=== PATIENT | female | born 1965 | race Caucasian/White ===

== ENCOUNTER 2019-09-22 00:18 | Outpatient (CLI) | payer OTHER, SELFPAY ==
--- NOTE | 2019-09-22 | DI.DEXA_ITS ---
EXAM: XR DEXA BONE DENSITY W/WO RADHA CLINICAL HISTORY: SCREENING FOR OSTEOPOROSIS IN POSTMENOPAUSAL WOMAN, Z78.0 TECHNIQUE: DEXA scan was performed according to the usual protocol. COMPARISON: No exams were available for comparison FINDINGS: Findings for lumbar spine scanning are T-score of -1.7. Findings for left hip scanning are T-score of -0.6 with left femoral neck T-score of -0.1. Right forearm scanning shows T-score of 0.3. IMPRESSION: Findings consistent with osteopenia according to the WHO criteria. Please note that the lateral verte bral scanogram shows no evidence of a vertebral compression fracture.
== END 2019-09-22 00:38 ==
PROVIDERS: PCP Family Medicine; Visit Provider Family Medicine
DX: M85.88 Other specified disorders of bone density and structure, other site (principal); Z78.0 Asymptomatic menopausal state
CPT/HCPCS: 77080

== ENCOUNTER 2019-10-21 01:08 | Outpatient (CLI) | payer OTHER, SELFPAY ==
--- NOTE | 2019-10-21 | DI.MAMMO_ITS ---
EXAM: MAMMO SCREENING CLINICAL HISTORY: SCREENING, Z12.31 TECHNIQUE: Mammograms were interpreted according to the usual protocol including computer analysis w [employer] CAD system, tomosynthesis and C-view imaging. COMPARISON: 2017 FINDINGS: The breasts are composed of scattered fibroglandular densities, Breast Density category B. No suspicious masses or suspicious microcalcifications are seen. No skin thickening or abnormal axillary lymph nodes are seen. There has been no significant change from prior exams. IMPRESSION: BI-RADS category 1, yearly screening mammography is recommended. Breast density category B, scattered fibroglandular densities.
== END 2019-10-21 01:28 ==
PROVIDERS: PCP Family Medicine; Visit Provider Family Medicine
DX: Z12.31 Encounter for screening mammogram for malignant neoplasm of breast (principal)
CPT/HCPCS: 77063; 77067

== ENCOUNTER 2019-12-07 08:38 | Outpatient (REF) | payer OTHER, SELFPAY ==
[2019-12-07 21:37] LABS: Calculated LDL 181 mg/dL (<100); Cholesterol 280 mg/dL (<200); HDL Cholesterol 83 mg/dL (40-60); Triglyceride 81 mg/dL (<150)
== END 2019-12-07 08:58 ==
LOC: NCHCN 08:38
PROVIDERS: PCP Family Medicine; Visit Provider Family Medicine
DX: E78.5 Hyperlipidemia, unspecified (principal)
CPT/HCPCS: 80061

== ENCOUNTER 2020-04-11 21:19 | Outpatient (REF) | payer OTHER, SELFPAY ==
[2020-04-11 22:19] LABS: ALT 28 U/L (14-59); AST 22 U/L (15-37); Albumin 4.2 g/dL (3.4-5.0); Alkaline Phosphatase 152 U/L (46-116); BUN 17 mg/dL (7-18); Bilirubin, Total 0.5 mg/dL (0.2-1.0); CREATININE 0.99 mg/dL (0.55-1.02); Calcium 9.3 mg/dL (8.5-10.1); Calculated LDL 101 mg/dL (<100); Chloride 107 mmol/L (98-107); Cholesterol 206 mg/dL (<200); Glucose 84 mg/dL (74-106); HDL Cholesterol 90 mg/dL (40-60); Potassium 4.7 mmol/L (3.5-5.1); Sodium 143 mmol/L (136-145); Total Protein 7.3 g/dL (6.4-8.2); Triglyceride 75 mg/dL (<150)
== END 2020-04-11 21:39 ==
LOC: NCHCN 21:19
PROVIDERS: PCP Family Medicine; Visit Provider Family Medicine
DX: Z00.00 Encounter for general adult medical examination without abnormal findings (principal); E78.5 Hyperlipidemia, unspecified; E66.3 Overweight
CPT/HCPCS: 80053; 80061

== ENCOUNTER 2020-11-13 10:00 | Emergency (ER) | payer OTHER, SELFPAY ==
[2020-11-13] VITALS (30 sets, daily range): BP systolic 111–169; BP diastolic 52–75; PULSE 46–77; RESP 11–21; TEMP 36.6–37.2; O2SAT 96–100
--- NOTE | 2020-11-13 10:00 | RT.EKG_ITS ---
APPROVED REPORT Exam: Resting ECG Reason for Exam: feeling unwell Patient Location: E HR:68 bpm ECG Measurements Heart Rate 68 AXIS MO 139 P 79 QRSd 96 QRS 38 QT 378 T 46 QTc 402 Conclusion Sinus rhythm...normal P axis, V-rate 60- 99
--- NOTE | 2020-11-13 10:14 | W.ED.GENAD ---
Discharge Plan Disposition Patient Disposition: HOME Condition: Stable Discharge Details Clinical Impression: Palpitations Primary Care Provider: Sydnee Meléndez ED Provider: Félix Logan Home Meds and New Rx's Prescriptions: Continued sertraline 25 mg Tablet 25 mg PO DAILY RF: 0 rosuvastatin 20 mg Tablet 20 mg PO HS RF: 0 Discharge Instructions Instructions: Heart Palpitations (ED) Additional Instructions: At this time your work-up in the ER has not revealed any obvious emergent process. Please watch for new or worsening symptoms and return to the ER for any concerns. As we discussed, I cannot stress the importance of reaching out your primary care provider tomorrow for prompt outpatient reevaluation, please discuss outpatient 28-day Holter monitor. Medical Decision Making 55-year-old female who reports since May has had intermittent lightheadedness, chest palpitations, increased stress, anxiety and depression. Recently started on sertraline however has yet to begin taking this medication. She had a full cardiac work-up at [facility] on Saturday, I am attempting to obtain those records. She reports over the past 2 nights she has not been able to sleep well because she has had constant palpitations. During the day she does not have these. Currently she is asymptomatic. Clinically she appears well, nontoxic and appears hemodynamically stable. She has only had a 2-day Holter monitor when I do truly believe that a 28-day Holter monitor is reasonable. Patient is agreeable to obtaining IV access, initiate a cardiac work-up including TSH with free T4 and a D-dimer. She understands that I would like to obtain a repeat 3-hour troponin given her ongoing symptoms. She is comfortable with this plan and has additional questions or concerns. I was also able to relay this plan to her . Initial laboratory values are unremarkable. D-dimer is within normal range, no need to pursue CTA of the chest. Initial troponin less than 0.05. Discussed laboratory values with patient. She is relieved, is asymptomatic, and is comfortable awaiting repeat troponin. Upon reevaluation patient is resting comfortably, reports that she is asymptomatic and had no palpitations while under my care. Repeat troponin remains less than 0.05 Discussed repeat troponin with patient, she again remained asymptomatic, is comfortable discharge and has no additional questions or concerns. She understands the importance of returning to the ER for new or worsening symptoms, otherwise she will contact her primary care provider tomorrow to initiate outpatient work-up, and discuss 28-day Holter monitor. Unfortunately by the time of discharge I had not received any records from [facility]. Medical Records Medical records reviewed: Yes I reviewed the patient's medical records. Imaging Data Radiologic Study: Attestation: I personally reviewed and interpreted this imaging study as follows: Imaging: X-Ray Radiologist's impression: Chest x-ray read by radiology as on the frontal view there is question of increased markings at the right lung base versus overlapping vascular structure, early pneumonia cannot be excluded. Lab Data Lab results reviewed: Yes I reviewed the patient's lab results. Labs: Laboratory Tests Range/Units 11/13/20 11/13/20 11/13/20 10:25 10:25 10:25 WBC (4.4-10.8) 10^3/uL 3.92 L RBC (3.93-5.22) 10^6/uL 4.41 Hgb (11.2-15.7) g/dL 12.8 Hct (36.0-46.0) % 39.6 MCV (80-95) fL 89.8 MCH (27.0-33.0) pg 29.0 MCHC (32.0-36.0) % 32.3 RDW (11.7-14.6) % 13.0 Plt Count (130-400) 10^3/uL 200 MPV (8.0-11.0) fL 10.5 Immature Gran % 0.3 Neutrophils % 55.8 Lymphocytes % 35.5 Monocytes % 5.9 Eosinophils % 2.0 Basophils % 0.5 Nucleated RBC % % 0 Absolute Neutrophils (1.2-6.7) 10^3/uL 2.19 Absolute Lymphocytes (1.2-3.4) 10^3/uL 1.39 Absolute Monocytes (0.1-0.8) 10^3/uL 0.23 Absolute Eosinophils (0.0-0.7) 10^3/uL 0.08 Absolute Basophils (0.0-0.2) 10^3/uL 0.02 PT (9.3-11.0) sec 9.8 INR (0.9-1.1) 1.0 APTT (21.0-27.5) sec 23.9 D-Dimer (<500) ng/mlFEU 210 Sodium (136-145) mmol/L 144 Potassium (3.5-5.1) mmol/L 3.8 Chloride (98-107) mmol/L 108 H Carbon Dioxide (21.0-32.0) mmol/L 27.1 Anion Gap (3-11) mmol/L 8.9 BUN (7-18) mg/dL 17 Creatinine (0.55-1.02) mg/dL 0.9 Estimated GFR/1.73 m2 (mL/min/1.73m2) >= 60.00 Glucose (74-106) mg/dL 108 H Calcium (8.5-10.1) mg/dL 9.0 Magnesium (1.8-2.4) mg/dL 1.9 Total Bilirubin (0.2-1.0) mg/dL 0.3 AST (15-37) U/L 21 ALT (14-59) U/L 26 Alkaline Phosphatase (46-116) U/L 127 H Troponin I (<0.06) ng/mL 0.05 Total Protein (6.4-8.2) g/dL 7.2 Albumin (3.4-5.0) g/dL 3.7 TSH (0.36-3.74) uIU/mL 1.78 Range/Units 11/13/20 13:24 WBC (4.4-10.8) 10^3/uL RBC (3.93-5.22) 10^6/uL Hgb (11.2-15.7) g/dL Hct (36.0-46.0) % MCV (80-95) fL MCH (27.0-33.0) pg MCHC (32.0-36.0) % RDW (11.7-14.6) % Plt Count (130-400) 10^3/uL MPV (8.0-11.0) fL Immature Gran % Neutrophils % Lymphocytes % Monocytes % Eosinophils % Basophils % Nucleated RBC % % Absolute Neutrophils (1.2-6.7) 10^3/uL Absolute Lymphocytes (1.2-3.4) 10^3/uL Absolute Monocytes (0.1-0.8) 10^3/uL Absolute Eosinophils (0.0-0.7) 10^3/uL Absolute Basophils (0.0-0.2) 10^3/uL PT (9.3-11.0) sec INR (0.9-1.1) APTT (21.0-27.5) sec D-Dimer (<500) ng/mlFEU Sodium (136-145) mmol/L Potassium (3.5-5.1) mmol/L Chloride (98-107) mmol/L Carbon Dioxide (21.0-32.0) mmol/L Anion Gap (3-11) mmol/L BUN (7-18) mg/dL Creatinine (0.55-1.02) mg/dL Estimated GFR/1.73 m2 (mL/min/1.73m2) Glucose (74-106) mg/dL Calcium (8.5-10.1) mg/dL Magnesium (1.8-2.4) mg/dL Total Bilirubin (0.2-1.0) mg/dL AST (15-37) U/L ALT (14-59) U/L Alkaline Phosphatase (46-116) U/L Troponin I (<0.06) ng/mL < 0.05 Total Protein (6.4-8.2) g/dL Albumin (3.4-5.0) g/dL TSH (0.36-3.74) uIU/mL ECG Data Attestation: I personally reviewed and interpreted this ECG (s) as follows: Interpretation: Please see official report by Dr. Luu. Sinus rhythm, ventricular rate of 68. No STEMI. HPI General Mode of arrival: ambulatory. Date/Time Provider Initiated Documentation: 11/13/20 10:01. Limitations to Documentation: no limitations. Information obtained by: patient. HPI Narrative: This is a 55-year-old female, history of hyperlipidemia, anxiety, depression, presenting to the ER for evaluation of palpitations. Patient states that she is in the [employer], was on the appointment in May, going to both [place] and then subsequently [facility]. She states that her symptoms began back in May. She was evaluated in [place], and then again at [facility] this past Saturday and reports having had a full cardiac work-up. She states intermittently for the past 6 months she has had some what she describes as feeling dizzy, palpitations, occasional pain in her neck. Patient states that she is currently asymptomatic. The past 2 nights when she was going to bed she felt her heart fluttering making it very difficult to fall asleep. She denies recent illness or trauma. She denies any fever, headache, visual changes, chest pain, shortness of breath, abdominal pain, nausea, vomiting, numbness, tingling, weakness. Patient reports increased stress, anxiety, and is seeing a counselor. She has been recently prescribed sertraline but did not begin taking it because she was concerned that it may be interactions with her cholesterol medication. She denies any pain or swelling in her legs. She states that she wore a Holter monitor for 2 days but it did not show anything. Related Data Home Medications Medication Instructions Recorded Confirmed rosuvastatin 20 mg PO HS 11/13/20 11/13/20 sertraline 25 mg PO DAILY 11/13/20 11/13/20 Allergies Allergy/AdvReac Type Severity Reaction Status Date / Time No Known Allergies Allergy Unverified 11/13/20 10:11 General Stated Complaint: GenMedical LALITO: 3 Review of Systems Constitutional Constitutional: Denies fatigue, Denies fever(s), Denies headache(s) and Denies weakness Eyes Eyes: Denies change in vision ENT Ears, Nose, Mouth, and Throat: Denies headache(s) and Reports neck pain (Occasional, none now) Cardiovascular Cardiovascular: Denies chest pain, Reports lightheadedness (Initially described as feeling dizzy), Reports palpitations and Denies dyspnea Respiratory Respiratory: Denies cough and Denies dyspnea Gastrointestinal Gastrointestinal: Denies abdominal pain, Denies nausea and Denies vomiting Genitourinary Genitourinary: Denies dysuria Musculoskeletal Musculoskeletal: Denies back pain, Reports neck pain (Occasional, none now), Denies numbness and Denies tingling Integumentary/Breasts Skin/Breast: Denies rash Neurologic Neurologic: Denies headache(s), Denies numbness, Denies tingling and Denies weakness Psychiatric Psychiatric: Reports anxiety and Reports depression Endocrine Endocrine: Denies fatigue and Reports palpitations Hematologic/Lymphatic Hematologic/Lymphatic: Denies easy bleeding and Denies easy bruising [facility] Medical History Nasal polyps Overweight Surgical History Colonoscopy - MAC (05/24/17) Social History Smoking/Tobacco Use Status: Current-Occasional Tobacco Type: cigarettes Smoking risk assessment performed?: Yes Alcohol Intake: current Alcohol Intake frequency: a few times a month Alcohol type: wine Drug use: Never Substance use type: does not use Do you feel safe at home: Yes Do you feel safe in your relationship?: Yes Exam Const General: cooperative, healthy appearing, comfortable and no acute distress Orientation: alert, awake and oriented x3 HENDC Head: normal to inspection, normocephalic and atraumatic Face and sinus: normal facial exam Mouth: moist mucous membranes Throat: posterior oropharynx normal Eyes General: appearance normal, both eyes and all related structures Alignment and Position: alignment normal Periorbital: periorbital findings normal Eyelids: eyelids normal Conjunctivae: conjunctivae normal Sclera: sclerae normal Cornea: corneas normal Pupils: PERRL EOM: EOM intact bilaterally Direct ophthalmoscopy: normal light reflex Neck Neck: normal visual inspection, full ROM, trachea midline, supple and nontender Resp Effort & Inspection: normal respiratory effort and able to speak in complete sentences Auscultation: clear to auscultation bilaterally Cardio Rate: regular rate Rhythm: regular rhythm GI Palpation: soft and nontender Back/Spine/Pelvis Back: No back tenderness Skin General skin exam: no rashes or lesions noted Neuro General: patient alert, patient awake, patient oriented x3, moves all extremities and no focal motor deficits Cranial Nerves: CN's II-XI intact bilaterally Cognition: normal cognition Speech: speech normal Gait: normal gait Motor: muscle tone normal throughout and strength 5/5 throughout Sensory Exam: no sensory deficits noted Extrem General: normal to inspection, full ROM, capillary refill normal, no pedal edema and no calf tenderness Psych Appearance: grossly normal Mental Status: mental status grossly normal Speech and Movement: speech and movement normal Mood: anxious mood (Slightly) Affect: normal affect Attitude: cooperative Thought Process: normal Thought Content: normal Insight: insight good Judgment: judgment good Course Vital Signs Vital signs: Vital Signs Temperature 37.2 C 11/13/20 10:06 Pulse 77 11/13/20 10:06 Blood Pressure 169/75 H 11/13/20 10:06 Pulse Oximetry 97 11/13/20 10:06 Temperature 37.2 C 11/13/20 10:06 Temperature Source Temporal Artery Scan 11/13/20 10:06 Pulse 77 11/13/20 10:06 Respiratory Effort Non-Labored 11/13/20 10:09 Blood Pressure 169/75 H 11/13/20 10:06 Blood Pressure Position Sitting 11/13/20 10:06 Pulse Oximetry 97 11/13/20 10:06 Oxygen Delivery Method Room Air 11/13/20 10:06 Oxygen Flow Rate 0 11/13/20 10:06 Pain Level 0 11/13/20 10:06
--- NOTE | 2020-11-13 10:15 | DI.RAD_ITS ---
Exam(s) XR CHEST 2V PA LATERAL EXAM: XR CHEST 2V PA LATERAL CLINICAL HISTORY: Palpitations. TECHNIQUE: 2D digital imaging was performed. COMPARISON: No exams were available for comparison FINDINGS: Heart size is normal. The mediastinum is not widened. Lungs are clear. No infiltrates nor pleural effusions. IMPRESSION: No acute pulmonary findings. DATA REPOSITORY: RADIATION DOSE DELIVERED:
[2020-11-13 10:36] LABS: Abs Immature Grans 0.01 10^3/uL (0.0-0.06); Absolute Basophil Count 0.02 10^3/uL (0.0-0.2); Absolute Eosinophil Count 0.08 10^3/uL (0.0-0.7); Absolute Lymphocyte Count 1.39 10^3/uL (1.2-3.4); Absolute Monocyte Count 0.23 10^3/uL (0.1-0.8); Absolute Neutrophil Count 2.19 10^3/uL (1.2-6.7); Basophils % 0.5; HCT 39.6 % (36.0-46.0); HGB 12.8 g/dL (11.2-15.7); Immature Grans % 0.3; Lymphocytes % 35.5; MCHC 32.3 % (32.0-36.0); MCV 89.8 fL (80-95); MPV 10.5 fL (8.0-11.0); Monocytes % 5.9; Neutrophils % 55.8; Nucleated RBC 0 %; Platelet Count 200 10^3/uL (130-400); RBC 4.41 10^6/uL (3.93-5.22); RDW-SD 42.6 fL; WBC 3.92 10^3/uL (4.4-10.8)
[2020-11-13 10:49] LABS: PTT Activated 23.9 sec (21.0-27.5); Prothrombin Time 9.8 sec (9.3-11.0)
[2020-11-13] MEDS: Aspirin 325 MG TAB PO (10:49)
[2020-11-13 10:56] LABS: ALT 26 U/L (14-59); AST 21 U/L (15-37); Albumin 3.7 g/dL (3.4-5.0); Alkaline Phosphatase 127 U/L (46-116); Anion Gap 8.9 mmol/L (3-11); BUN 17 mg/dL (7-18); Bilirubin, Total 0.3 mg/dL (0.2-1.0); CO2 27.1 mmol/L (21.0-32.0); CREATININE 0.9 mg/dL (0.55-1.02); Chloride 108 mmol/L (98-107); Glucose 108 mg/dL (74-106); Magnesium 1.9 mg/dL (1.8-2.4); Potassium 3.8 mmol/L (3.5-5.1); Sodium 144 mmol/L (136-145); TSH (W/Ref FT4) 1.78 uIU/mL (0.36-3.74); Total Protein 7.2 g/dL (6.4-8.2); Troponin I 0.05 ng/mL (<0.06)
[2020-11-13 11:04] LABS: D-Dimer 210 ng/mlFEU (<500)
--- NOTE | 2020-11-13 11:18 | DI.VRAD_ITS ---
PROCEDURE INFORMATION: Exam: XR Chest Exam date and time: 11/13/2020 10:19 AM Age: 55 years old Clinical indication: Pain; Other: Palpitations TECHNIQUE: Imaging protocol: XR of the chest. Views: 2 views. COMPARISON: No relevant prior studies available. FINDINGS: Lungs: On the frontal view there is question of increased markings at the right lung base versus overlapping vascular structures. Early pneumonia cannot be excluded. Pleural spaces: Unremarkable. No pleural effusion. No pneumothorax. Heart/Mediastinum: Unremarkable. No cardiomegaly. Bones/joints: Unremarkable. IMPRESSION: Questioned early pneumonia right lung base. Dictated and Authenticated by: Elsa Wells MD. Ordering:KHURRAM Heard MD
[2020-11-13 14:01] LABS: Troponin I < 0.05 ng/mL (<0.06)
== END 2020-11-13 14:48 | disposition home or self-care (01) ==
PROVIDERS: Emergency Provider Physician Assistant; PCP Family Medicine
DX: R00.2 Palpitations (principal)
CPT/HCPCS: 36415; 80053; 93005; 99284; 71046; 83735; 84443; 84484; 85025; 85379; 85610; 85730; 93010; 99283

== ENCOUNTER 2020-11-14 08:19 | Emergency (ER) | payer OTHER, SELFPAY ==
[2020-11-14] VITALS (46 sets, daily range): BP systolic 116–138; BP diastolic 60–79; PULSE 52–69; RESP 13–35; TEMP 36.4; O2SAT 97–100
--- NOTE | 2020-11-14 08:00 | RT.EKG_ITS ---
APPROVED REPORT Exam: Resting ECG Reason for Exam: paliptations Patient Location: E HR:59 bpm ECG Measurements Heart Rate 59 AXIS SD 146 P 81 QRSd 89 QRS 40 QT 387 T 49 QTc 384 Conclusion Sinus bradycardia...rate< 60 sinus bradycardia at 59, normal axis, no WPW, QTC 384, no HOCM, no Brugada, no acute ischemic changes , nondiagnostic EKG
--- NOTE | 2020-11-14 09:07 | W.ED.GENAD ---
Discharge Plan Disposition Patient Disposition: HOME Condition: Stable Discharge Details Clinical Impression: Palpitations Primary Care Provider: Sydnee Meléndez ED Provider: Dorothea Perez Home Meds and New Rx's Prescriptions: Continued sertraline 25 mg Tablet 25 mg PO DAILY RF: 0 rosuvastatin 20 mg Tablet 20 mg PO HS RF: 0 Discharge Instructions Instructions: Heart Palpitations (ED) Additional Instructions: Please return immediately to the emergency department if you develop any new or worsening symptoms, if your condition does not improve as expected, or if you become otherwise concerned. It is extremely important that you call soon as possible to make an appointment to be seen in follow-up for this visit by your primary care doctor and a mental health coordinator as we discussed. Stand Alone Forms: Work Release Referrals: Sydnee Meléndez [Primary Care Provider] - Elsa Avila MD [ [facility] STAFF PHYSICIAN] - Discharge Data Discharge Date/Time-TO BE ENTERED AT DEPARTURE: 11/14/20 13:56 Medical Decision Making Julianna Mercado is a 55-year-old woman with a history of anxiety/depression, hyperlipidemia with episodic sensation of heart racing since July 2020, evaluated for this while in the with labs, echo, vehicle monitor technician, seen 3 days ago at [facility] for same, seen yesterday here for same. Currently asymptomatic. On exam patient is well and nontoxic-appearing. Benign cardiopulmonary exam. Concern for intermittent SVT, atrial fibrillation, anxiety, other. Doubt metabolic/lyte derangement given multiple laboratory evaluations for same, will repeat screening labs today in case of possible gradual onset abnormality given patient with episodes occurring more frequently over the past few days. EKG unremarkable. Plan for IV placement, telemetry, labs, will obtain repeat EKG if initial work-up negative. Exam/history at this time is not consistent with thyroid disease (normal TSH yesterday), sepsis, acute aortic pathology, acute coronary syndrome. Doubt pulmonary embolism. Doubt myocarditis given chronicity of symptoms. Patient with episode of sinus tachycardia on monitor, patient reports that during episode she had same sensation that she has been intermittently experiencing except more mild. Denies any other symptoms during episode including chest pain. I discussed patient with Dr. Avila of cardiology, who stated that longer vehicle monitor technician would be appropriate given not 48-hour monitor in the past has not been adequate capture patient symptomatic episodes. I discussed plan for longer monitor with respiratory therapy, who stated that patient would require preauthorization from PCP and this would not be likely to be achieved while patient is in the emergency department. Plan for 48-hour Holter monitor and cardiology outpatient follow-up if diagnostics today are negative. Repeat troponin 0.06 and repeat EKG negative. Admission not indicated. I had a lengthy discussion with Patient regarding return to emergency department precautions, home care, and importance of outpatient follow-up. Pt verbalizes understanding of the plan and is amenable. Patient discharged to home with clear plan for outpatient follow-up. All questions were answered. Pt placed on list for outpatient follow-up with cardiology. Pt requests work release as she travels for work and will be unable to return holter unless she waits to return to work until after monitoring completed. Disposition decision was made weighing the risks and benefits of hospitalization versus outpatient treatment, the risk for further decompensation, and the patient's wishes. Medical Records Medical records reviewed: Yes I reviewed the patient's medical records. Imaging Data Radiologic Study: Attestation: I personally reviewed and interpreted this imaging study as follows: Radiologist's impression: EXAM: XR CHEST 2V PA LATERAL CLINICAL HISTORY: Palpitations. TECHNIQUE: 2D digital imaging was performed. COMPARISON: No exams were available for comparison FINDINGS: Heart size is normal. The mediastinum is not widened. Lungs are clear. No infiltrates nor pleural effusions. IMPRESSION: No acute pulmonary findings. Lab Data Lab results reviewed: Yes I reviewed the patient's lab results. Labs: Laboratory Tests Range/Units 11/14/20 11/14/20 11/14/20 09:07 09:07 09:07 WBC (4.4-10.8) 10^3/uL 5.44 D RBC (3.93-5.22) 10^6/uL 4.48 Hgb (11.2-15.7) g/dL 12.9 Hct (36.0-46.0) % 40.1 MCV (80-95) fL 89.5 MCH (27.0-33.0) pg 28.8 MCHC (32.0-36.0) % 32.2 RDW (11.7-14.6) % 13.1 Plt Count (130-400) 10^3/uL 211 MPV (8.0-11.0) fL 11.1 H Immature Gran % 0.4 Neutrophils % 69.1 Lymphocytes % 22.4 Monocytes % 5.3 Eosinophils % 2.4 Basophils % 0.4 Nucleated RBC % % 0 Absolute Neutrophils (1.2-6.7) 10^3/uL 3.76 Absolute Lymphocytes (1.2-3.4) 10^3/uL 1.22 Absolute Monocytes (0.1-0.8) 10^3/uL 0.29 Absolute Eosinophils (0.0-0.7) 10^3/uL 0.13 Absolute Basophils (0.0-0.2) 10^3/uL 0.02 D-Dimer (<500) ng/mlFEU 223 Sodium (136-145) mmol/L 144 Potassium (3.5-5.1) mmol/L 3.9 Chloride (98-107) mmol/L 108 H Carbon Dioxide (21.0-32.0) mmol/L 28.1 Anion Gap (3-11) mmol/L 7.9 BUN (7-18) mg/dL 16 Creatinine (0.55-1.02) mg/dL 0.9 Estimated GFR/1.73 m2 (mL/min/1.73m2) >= 60.00 Glucose (74-106) mg/dL 105 Calcium (8.5-10.1) mg/dL 9.2 Magnesium (1.8-2.4) mg/dL 2.0 Total Bilirubin (0.2-1.0) mg/dL 0.4 AST (15-37) U/L 20 ALT (14-59) U/L 28 Alkaline Phosphatase (46-116) U/L 119 H Troponin I (<0.06) ng/mL < 0.05 NT-Pro-B Natriuret Pep (<300) pg/mL 237 Total Protein (6.4-8.2) g/dL 7.2 Albumin (3.4-5.0) g/dL 3.8 Range/Units 11/14/20 12:21 WBC (4.4-10.8) 10^3/uL RBC (3.93-5.22) 10^6/uL Hgb (11.2-15.7) g/dL Hct (36.0-46.0) % MCV (80-95) fL MCH (27.0-33.0) pg MCHC (32.0-36.0) % RDW (11.7-14.6) % Plt Count (130-400) 10^3/uL MPV (8.0-11.0) fL Immature Gran % Neutrophils % Lymphocytes % Monocytes % Eosinophils % Basophils % Nucleated RBC % % Absolute Neutrophils (1.2-6.7) 10^3/uL Absolute Lymphocytes (1.2-3.4) 10^3/uL Absolute Monocytes (0.1-0.8) 10^3/uL Absolute Eosinophils (0.0-0.7) 10^3/uL Absolute Basophils (0.0-0.2) 10^3/uL D-Dimer (<500) ng/mlFEU Sodium (136-145) mmol/L Potassium (3.5-5.1) mmol/L Chloride (98-107) mmol/L Carbon Dioxide (21.0-32.0) mmol/L Anion Gap (3-11) mmol/L BUN (7-18) mg/dL Creatinine (0.55-1.02) mg/dL Estimated GFR/1.73 m2 (mL/min/1.73m2) Glucose (74-106) mg/dL Calcium (8.5-10.1) mg/dL Magnesium (1.8-2.4) mg/dL Total Bilirubin (0.2-1.0) mg/dL AST (15-37) U/L ALT (14-59) U/L Alkaline Phosphatase (46-116) U/L Troponin I (<0.06) ng/mL 0.06 NT-Pro-B Natriuret Pep (<300) pg/mL Total Protein (6.4-8.2) g/dL Albumin (3.4-5.0) g/dL ECG Data Attestation: I personally reviewed and interpreted this ECG (s) as follows: Interpretation: EKG shows sinus bradycardia at 59, normal axis, no WPW, QTC 384, no HOCM, no Brugada, no acute ischemic changes, nondiagnostic EKG Repeat EKG 12:19 shows sinus bradycardia 58, normal axis, no significant change from prior, nondiagnostic EKG HPI General Mode of arrival: EMS. Date/Time Provider Initiated Documentation: 11/14/20 08:30. Limitations to Documentation: no limitations. Information obtained by: patient, RN notes reviewed and old records reviewed. HPI Narrative: Julianna Mercado is a 55-year-old woman with a history of hyperlipidemia, anxiety/depression presenting to the emergency department with palpitations. Per patient and record review, patient was seen here yesterday for same symptoms. Patient was also seen 3 days ago at the [facility] emergency department for the same symptoms. Patient reports that she has been having intermittent sensation of a racing heart since July 2020. 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 She underwent labs, EKG, echocardiogram in the per patient, also cardiac monitoring. During ED visit yesterday, staff attempted to obtain medical records from [facility] and were unsuccessful. Patient reports at [facility] she had labs, chest x-ray, and EKG, and was discharged home. Patient reports that she has had several 48-hour cardiac monitors for this issue, but she has never been symptomatic while wearing the monitor. Patient reports that palpitations are always the same, a sensation of racing heart that begins at rest and that lasts for 5 minutes or so. Patient reports that today she was sitting on the couch when symptoms began. She reports that they lasted 5 minutes or so as usual. Patient reports that she is currently asymptomatic. Patient reports that she was not feeling particularly anxious when symptoms began this morning. She has not had exertional palpitations or other exertional symptoms. Patient reports that she just started taking sertraline yesterday, no other recent medication changes. Patient reports that she has had some weight gain over the past few months, no dietary or appetite changes. She denies alcohol use, recreational drug use, nicotine/tobacco. Patient denies having chest pain or other symptoms during episodes of racing heart. She denies any current pain, cough, shortness of breath, lightheadedness, vomiting, numbness, weakness. Patient does report mild diarrhea that started this morning. Related Data Home Medications Medication Instructions Recorded Confirmed rosuvastatin 20 mg PO HS 11/13/20 11/14/20 sertraline 25 mg PO DAILY 11/13/20 11/14/20 Allergies Allergy/AdvReac Type Severity Reaction Status Date / Time No Known Allergies Allergy Unverified 11/14/20 08:33 General Stated Complaint: Palpitatns LALITO: 3 Review of Systems Narrative: Constitutional: denies fevers Eyes: denies eye pain ENT: denies ear pain, dental pain, sore throat Cardiovascular: denies chest pain, edema, reports palpitations Respiratory: denies SOB, cough GI: denies abdominal pain, vomiting, diarrhea : denies flank pain MSK: denies back pain, neck pain, arthralgias, myalgias Skin: denies rash Neuro: denies headaches, numbness, weakness PFSH Medical History Nasal polyps Overweight Surgical History Colonoscopy - MAC (05/24/17) Social History Smoking/Tobacco Use Status: Former Tobacco Use Smoking risk assessment performed?: Yes Alcohol Intake: current Alcohol Intake frequency: holidays/special occasions only Alcohol type: wine Drug use: Never Substance use type: does not use Do you feel safe at home: Yes Do you feel safe in your relationship?: Yes Exam Narrative Exam Narrative: Constitutional: well and [id number], pleasant, conversing normally HENT: head atraumatic/normocephalic/normal inspection, mucous membranes moist Eyes: conjunctiva normal, sclera normal, pupils 3mm b/l Neck: no stridor, normal ROM, trachea midline Chest: normal inspection, no chest wall tenderness to palpation Resp: normal work of breathing, LCTAB Cardio: normal rate, normal rhythm, no murmur appreciated Back: normal inspection, no rash Skin: warm, dry, normal color, no rash Neuro: alert, not altered, grossly non-focal, normal tone Ext: no edema, no posterior calf tenderness to palpation Psych: normal mood, normal affect, normal behavior Course Vital Signs Vital signs: Vital Signs Temperature 36.4 C L 11/14/20 08:29 Pulse 69 11/14/20 08:29 Respiratory Rate 20 11/14/20 08:29 Pulse Oximetry 100 11/14/20 08:29 Temperature 36.4 C L 11/14/20 08:29 Temperature Source Skin 11/14/20 08:29 Pulse 69 11/14/20 08:29 Respiratory Rate 20 11/14/20 08:29 Respiratory Effort Non-Labored 11/14/20 08:34 Blood Pressure Position Supine 11/14/20 08:29 Pulse Oximetry 100 11/14/20 08:29 Oxygen Delivery Method Room Air 11/14/20 08:29 Oxygen Flow Rate 0 11/14/20 08:29 Pain Level 0 11/14/20 08:29
[2020-11-14 09:23] LABS: Abs Immature Grans 0.02 10^3/uL (0.0-0.06); Absolute Basophil Count 0.02 10^3/uL (0.0-0.2); Absolute Eosinophil Count 0.13 10^3/uL (0.0-0.7); Absolute Lymphocyte Count 1.22 10^3/uL (1.2-3.4); Absolute Monocyte Count 0.29 10^3/uL (0.1-0.8); Absolute Neutrophil Count 3.76 10^3/uL (1.2-6.7); Basophils % 0.4; Eosinophils % 2.4; HCT 40.1 % (36.0-46.0); HGB 12.9 g/dL (11.2-15.7); Immature Grans % 0.4; Lymphocytes % 22.4; MCH 28.8 pg (27.0-33.0); MCHC 32.2 % (32.0-36.0); MCV 89.5 fL (80-95); MPV 11.1 fL (8.0-11.0); Monocytes % 5.3; Neutrophils % 69.1; Nucleated RBC 0 %; Platelet Count 211 10^3/uL (130-400); RBC 4.48 10^6/uL (3.93-5.22); RDW 13.1 % (11.7-14.6); RDW-SD 42.5 fL; WBC 5.44 10^3/uL (4.4-10.8)
[2020-11-14 09:50] LABS: ALT 28 U/L (14-59); AST 20 U/L (15-37); Albumin 3.8 g/dL (3.4-5.0); Alkaline Phosphatase 119 U/L (46-116); Anion Gap 7.9 mmol/L (3-11); BUN 16 mg/dL (7-18); Bilirubin, Total 0.4 mg/dL (0.2-1.0); CO2 28.1 mmol/L (21.0-32.0); CREATININE 0.9 mg/dL (0.55-1.02); Calcium 9.2 mg/dL (8.5-10.1); Chloride 108 mmol/L (98-107); Glucose 105 mg/dL (74-106); NT-proBNP 237 pg/mL (<300); Potassium 3.9 mmol/L (3.5-5.1); Sodium 144 mmol/L (136-145); Total Protein 7.2 g/dL (6.4-8.2); Troponin I < 0.05 ng/mL (<0.06)
[2020-11-14 10:06] LABS: D-Dimer 223 ng/mlFEU (<500)
--- NOTE | 2020-11-14 11:00 | RT.EKG_ITS ---
APPROVED REPORT Exam: Resting ECG Reason for Exam: palpitations, repeat Patient Location: E HR:58 bpm ECG Measurements Heart Rate 58 AXIS IA 155 P 64 QRSd 88 QRS 37 QT 406 T 43 QTc 400 Conclusion Sinus bradycardia...rate< 60 Probable left atrial enlargement...P >50mS, <-0.10mV V1 no STEMI, nondiagnostic EKG I have reviewed and interpreted ECG and agree with software generated interpretation.
[2020-11-14 12:46] LABS: Troponin I 0.06 ng/mL (<0.06)
--- NOTE | 2020-11-14 14:13 | NUR.NOTE ---
Nursing Note: Referral faxed to [facility] Cardiology for follow up NOEL for recurrent palpitations. Vivian Dorantes
== END 2020-11-14 13:56 | disposition home or self-care (01) ==
PROVIDERS: Emergency Provider Student in an Organized Health Care Education/Training Program; PCP Family Medicine
DX: R00.2 Palpitations (principal)
CPT/HCPCS: 36415; 80053; 93005; 99284; 83735; 83880; 84484; 85025; 85379; 93010; 93225

== ENCOUNTER 2020-11-14 09:24 | Outpatient (RCR) | payer OTHER, SELFPAY ==
--- NOTE | 2020-11-14 09:45 | HOLTER_ITS ---
APPROVED REPORT Conclusion This was a 48-hour Holter monitor ordered for palpitations Rhythm throughout was sinus. Average heart rate was 70, minimum was 53 and maximum 146 1 isolated PVC was seen There were very rare atrial premature beats, one atrial pair. A total of 8 premature atrial contract ions was seen in 48 hours There was no atrial fibrillation, no high-grade AV block, no pauses greater than 3 seconds No patient symptoms were reported
== END 2020-11-23 23:00 | disposition home or self-care (01) ==
LOC: RT 09:24
PROVIDERS: PCP Family Medicine; Visit Provider Family Medicine
DX: R00.2 Palpitations (principal); I49.3 Ventricular premature depolarization; I49.1 Atrial premature depolarization
CPT/HCPCS: 93227; 93225; 99213

== ENCOUNTER → 2020-12-09 10:43 | Outpatient (BNVA) | payer OTHER, SELFPAY | PROVIDERS: PCP Family Medicine; Referring Provider Family Medicine; Visit Provider Internal Medicine Cardiovascular Disease | DX: R00.2 Palpitations (principal) | CPT/HCPCS: 93005; 99204; 99214 ==

== ENCOUNTER 2021-01-20 09:25 | Emergency (ER) | payer OTHER, SELFPAY ==
[2021-01-20] VITALS (40 sets, daily range): BP systolic 123–141; BP diastolic 63–76; PULSE 60–75; RESP 12–24; TEMP 36.6; O2SAT 97–100
--- NOTE | 2021-01-20 09:00 | RT.EKG_ITS ---
APPROVED REPORT Exam: Resting ECG Reason for Exam: palpitations Patient Location: E HR:60 bpm ECG Measurements Heart Rate 60 AXIS VA 148 P 69 QRSd 94 QRS 38 QT 389 T 40 QTc 389 Conclusion Sinus rhythm...normal P axis, V-rate 60- 99 Normal Electrocardiogram
--- NOTE | 2021-01-20 09:19 | W.ED.GENAD ---
Discharge Plan Disposition Patient Disposition: HOME Condition: Stable Discharge Details Clinical Impression: Palpitations Primary Care Provider: Sydnee Meléndez ED Provider: Janie Pisano Home Meds and New Rx's Prescriptions: Continued rosuvastatin 20 mg Tablet 20 mg PO DAILY RF: 0 escitalopram oxalate 5 mg Tablet 5 mg PO DAILY RF: 0 Discharge Instructions Instructions: Heart Palpitations (ED) Additional Instructions: Your blood work, EKGs and chest x-ray were reassuring and did not note any evidence of abnormal findings today. Drink plenty of fluids and get plenty of rest. Alternate tylenol and motrin as needed and directed for pain. Call your doctor at the [facility] to discuss whether you would like to stop your Lexapro and start a different antidepressant. You can consider decreasing the lexapro dose by half this weekend from 5 mg once daily to 2.5 mg once daily if you develop any return of symptoms of dizziness or palpitations. Call your primary care doctor as well to schedule a follow-up appointment for reevaluation within the next week and to order an outpatient 28-day leather stamper for further evaluation of your intermittent palpitations. Return immediately to the emergency department if you develop any worsening or new concerning symptoms. Discharge Data Discharge Physician: Janie Pisano Medical Decision Making 0930 -- 55-year-old female with a history of GERD, anxiety and depression presents for intermittent episodes of palpitations, dizziness and warm feeling in her chest occurring for the past 6 months, with last episode occurring today and lasting a few minutes and then resolved. She denies any symptoms at present. Records note that she has been seen here twice recently for the same complaint and had unremarkable work-ups and had a 48-hour Holter monitor on 11/14/2020 which was unremarkable and noted: Conclusion This was a 48-hour Holter monitor ordered for palpitations Rhythm throughout was sinus. Average heart rate was 70, minimum was 53 and maximum 146 1 isolated PVC was seen There were very rare atrial premature beats, one atrial pair. A total of 8 premature atrial contractions was seen in 48 hours There was no atrial fibrillation, no high-grade AV block, no pauses greater than 3 seconds No patient symptoms were reported She was advised to follow-up with her PCP for 28-day Holter monitor but she states she did not. She feels her symptoms may be associated with her Lexapro. She does admit to increased stress recently as her symptoms occurred today while speaking with her sister about Covid. Patient appears anxious. Her vitals are within normal limits. Her EKG notes a rate of 60, sinus, no STEMI and nondiagnostic. Suspect her presentation may most likely be associate with anxiety or medication reaction. Considering her age, will obtain screening labs including D-dimer, TSH and chest x-ray and plan for repeat troponin and EKG. 1030 --labs and imaging reviewed and unremarkable. Normal white blood cell count. Negative D-dimer. Troponin negative. TSH within normal limits. Chest x-ray negative. Patient is agreeable with plan for repeat troponin and EKG. 1330 -- Repeat troponin negative. Repeat EKG unremarkable. Patient remains asymptomatic. She was advised to follow-up with her PCP for reevaluation and for referral for outpatient 28-day Holter monitor. Patient placed on care management list to help arrange for this outpatient test. Usual and customary return precautions given prior to discharge. Medical Records Medical records reviewed: Yes I reviewed the patient's medical records. Imaging Data Radiologic Study: Radiologist's impression: XR CHEST 2V PA LATERAL CLINICAL HISTORY: palpitations, r/o fx TECHNIQUE: 2D digital imaging was performed. COMPARISON: CR,XR XR CHEST 2V PA LATERAL from 11/13/2020 FINDINGS: The heart is not enlarged. The lungs are clear and well expanded. No pleural effusion seen. Mediastinal contours appear intact. IMPRESSION: Normal chest. Lab Data Lab results reviewed: Yes I reviewed the patient's lab results. Labs: Laboratory Tests Range/Units 01/20/21 01/20/21 01/20/21 09:40 09:40 09:40 WBC (4.4-10.8) 10^3/uL 5.26 RBC (3.93-5.22) 10^6/uL 4.59 Hgb (11.2-15.7) g/dL 13.2 Hct (36.0-46.0) % 41.2 MCV (80-95) fL 89.8 MCH (27.0-33.0) pg 28.8 MCHC (32.0-36.0) % 32.0 RDW (11.7-14.6) % 13.0 Plt Count (130-400) 10^3/uL 208 MPV (8.0-11.0) fL 10.9 Immature Gran % 0.4 Neutrophils % 59.9 Lymphocytes % 32.3 Monocytes % 5.3 Eosinophils % 1.7 Basophils % 0.4 Nucleated RBC % % 0 Absolute Neutrophils (1.2-6.7) 10^3/uL 3.15 Absolute Lymphocytes (1.2-3.4) 10^3/uL 1.70 Absolute Monocytes (0.1-0.8) 10^3/uL 0.28 Absolute Eosinophils (0.0-0.7) 10^3/uL 0.09 Absolute Basophils (0.0-0.2) 10^3/uL 0.02 D-Dimer (<500) ng/mlFEU Sodium (136-145) mmol/L 142 Potassium (3.5-5.1) mmol/L 3.6 Chloride (98-107) mmol/L 106 Carbon Dioxide (21.0-32.0) mmol/L 29.0 Anion Gap (3-11) mmol/L 7.0 BUN (7-18) mg/dL 13 Creatinine (0.55-1.02) mg/dL 1.0 Estimated GFR/1.73 m2 (mL/min/1.73m2) 58.00 Glucose (74-106) mg/dL 89 Calcium (8.5-10.1) mg/dL 9.4 Magnesium (1.8-2.4) mg/dL 2.0 Total Bilirubin (0.2-1.0) mg/dL 0.5 AST (15-37) U/L 33 ALT (14-59) U/L 45 Alkaline Phosphatase (46-116) U/L 140 H Troponin I (<0.06) ng/mL < 0.05 Total Protein (6.4-8.2) g/dL 7.8 Albumin (3.4-5.0) g/dL 4.2 TSH (0.36-3.74) uIU/mL Range/Units 01/20/21 01/20/21 01/20/21 09:40 09:53 12:39 WBC (4.4-10.8) 10^3/uL RBC (3.93-5.22) 10^6/uL Hgb (11.2-15.7) g/dL Hct (36.0-46.0) % MCV (80-95) fL MCH (27.0-33.0) pg MCHC (32.0-36.0) % RDW (11.7-14.6) % Plt Count (130-400) 10^3/uL MPV (8.0-11.0) fL Immature Gran % Neutrophils % Lymphocytes % Monocytes % Eosinophils % Basophils % Nucleated RBC % % Absolute Neutrophils (1.2-6.7) 10^3/uL Absolute Lymphocytes (1.2-3.4) 10^3/uL Absolute Monocytes (0.1-0.8) 10^3/uL Absolute Eosinophils (0.0-0.7) 10^3/uL Absolute Basophils (0.0-0.2) 10^3/uL D-Dimer (<500) ng/mlFEU 289 Sodium (136-145) mmol/L Potassium (3.5-5.1) mmol/L Chloride (98-107) mmol/L Carbon Dioxide (21.0-32.0) mmol/L Anion Gap (3-11) mmol/L BUN (7-18) mg/dL Creatinine (0.55-1.02) mg/dL Estimated GFR/1.73 m2 (mL/min/1.73m2) Glucose (74-106) mg/dL Calcium (8.5-10.1) mg/dL Magnesium (1.8-2.4) mg/dL Total Bilirubin (0.2-1.0) mg/dL AST (15-37) U/L ALT (14-59) U/L Alkaline Phosphatase (46-116) U/L Troponin I (<0.06) ng/mL < 0.05 Total Protein (6.4-8.2) g/dL Albumin (3.4-5.0) g/dL TSH (0.36-3.74) uIU/mL 1.35 ECG Data Attestation: I personally reviewed and interpreted this ECG (s) as follows: Interpretation: Rate of 60, sinus, no acute ST elevation or depression. MI 148. QRS 94. QTc 389 HPI General Mode of arrival: ambulatory. Date/Time Provider Initiated Documentation: 01/20/21 09:31. Limitations to Documentation: no limitations. Information obtained by: patient. HPI Narrative: Patient is a 55-year-old female with a history of GERD, anxiety and depression who has had intermittent palpitations for the past 6 months, presents for an episode that occurred today while sitting associated with dizziness, warm feeling in my chest and palpitations. Patient states she was sitting at home talking on the phone with her sister about COVID when she developed dizziness with a warm feeling in her chest and felt like her heart was beating fast. She states she did not check her pulse at that time. She states this lasted a few minutes and then resolved. She does admit to increased stress recently. She denies any symptoms at present. She states she has had similar episodes occurring sometimes 1-2 times monthly, and other times occurring every few months over the past 6 months. She states she feels her symptoms could be due to stress or to her Lexapro which she has been taking for the past 45 days. She states she has had similar episodes before starting the Lexapro but states it has been occurring more frequently since then. She states she was on Zoloft several months ago but this made her depression worse so she stopped it after 3 days. She states she feels the Lexapro has helped her mood but she is concerned it is causing symptoms of flushing, dizziness and palpitations. She states she felt fine yesterday and this morning. She denies any alcohol or excessive caffeine use. She denies any recent illness. Patient was seen here in the ED a few times for the same complaint over the last few months. She had a 48-hour Holter monitor which was unremarkable. She was advised to follow-up for a 28-day Holter monitor but she states she did not. Related Data Home Medications Medication Instructions Recorded Confirmed rosuvastatin 20 mg PO DAILY 11/13/20 01/20/21 escitalopram oxalate 5 mg PO DAILY 01/20/21 01/20/21 Allergies Allergy/AdvReac Type Severity Reaction Status Date / Time No Known Allergies Allergy Verified 01/20/21 09:30 General LALITO: 3 Review of Systems All systems reviewed & are unremarkable except as noted in HPI and below Constitutional Constitutional: Reports as per HPI, Denies chills and Denies fever(s) Eyes Eyes: Denies blurry vision ENT Ears, Nose, Mouth, and Throat: Reports dizziness, Denies sore throat and Denies throat swelling Cardiovascular Cardiovascular: Denies chest pain, Reports rapid heart rate and Denies dyspnea Respiratory Respiratory: Denies cough and Denies dyspnea Gastrointestinal Gastrointestinal: Denies abdominal pain, Denies diarrhea and Denies vomiting Genitourinary Genitourinary: Denies hematuria and Denies dysuria Musculoskeletal Musculoskeletal: Denies back pain and Denies numbness Integumentary/Breasts Skin/Breast: Denies lesions and Denies rash Neurologic Neurologic: Reports dizziness, Denies localized weakness and Denies numbness Allergic/Immunologic Allergic/Immunologic: Denies throat swelling FORMERLY [facility], 1928–1983 Medical History (Updated 01/20/21 @ 10:34 by Janie Pisano DO) Anxiety Depression GERD (gastroesophageal reflux disease) Nasal polyps Overweight Surgical History Colonoscopy - [facility] (05/24/17) Social History Smoking/Tobacco Use Status: Former Tobacco Use Smoking risk assessment performed?: Yes Alcohol Intake: former Drug use: Never Substance use type: does not use Household members: spouse 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 Do you feel safe at home: Yes Do you feel safe in your relationship?: Yes Exam Const General: cooperative, healthy appearing and no acute distress HENMT Head: normal to inspection Face and sinus: normal facial exam Eyes General: appearance normal, both eyes and all related structures EOM: EOM intact bilaterally Neck Neck: normal visual inspection and No submandibular swelling Lymphatic: no lymphadenopathy noted Chest Chest: normal inspection of the chest and no tenderness Resp Effort & Inspection: normal respiratory effort and able to speak in complete sentences Auscultation: clear to auscultation bilaterally Cardio Rate: regular rate Rhythm: regular rhythm GI Inspection: normal to inspection Palpation: soft, not firm, not rigid and nontender Auscultation: normal bowel sounds Skin General skin exam: no rashes or lesions noted Neuro General: patient alert, patient awake and patient oriented x3 Cognition: normal cognition Speech: speech normal Motor: muscle tone normal throughout Sensory Exam: no sensory deficits noted Extrem General: normal to inspection, full ROM, capillary refill normal, no calf tenderness bilaterally and no edema Psych Appearance: grossly normal Mental Status: mental status grossly normal Speech and Movement: speech and movement normal Affect: normal affect
[2021-01-20 09:49] LABS: Abs Immature Grans 0.02 10^3/uL (0.0-0.06); Absolute Basophil Count 0.02 10^3/uL (0.0-0.2); Absolute Eosinophil Count 0.09 10^3/uL (0.0-0.7); Absolute Monocyte Count 0.28 10^3/uL (0.1-0.8); Absolute Neutrophil Count 3.15 10^3/uL (1.2-6.7); Basophils % 0.4; Eosinophils % 1.7; HCT 41.2 % (36.0-46.0); HGB 13.2 g/dL (11.2-15.7); Immature Grans % 0.4; Lymphocytes % 32.3; MCH 28.8 pg (27.0-33.0); MCV 89.8 fL (80-95); MPV 10.9 fL (8.0-11.0); Monocytes % 5.3; Neutrophils % 59.9; Nucleated RBC 0 %; Platelet Count 208 10^3/uL (130-400); RBC 4.59 10^6/uL (3.93-5.22); RDW-SD 42.4 fL; WBC 5.26 10^3/uL (4.4-10.8)
--- NOTE | 2021-01-20 10:00 | DI.RAD_ITS ---
Exam(s) XR CHEST 2V PA LATERAL EXAM: XR CHEST 2V PA LATERAL CLINICAL HISTORY: palpitations, r/o fx TECHNIQUE: 2D digital imaging was performed. COMPARISON: CR,XR XR CHEST 2V PA LATERAL from 11/13/2020 FINDINGS: The heart is not enlarged. The lungs are clear and well expanded. No pleural effusion seen. Mediastin al contours appear intact. IMPRESSION: Normal chest. RADIATION DOSE DELIVERED: Total DLP
[2021-01-20 10:05] LABS: ALT 45 U/L (14-59); AST 33 U/L (15-37); Albumin 4.2 g/dL (3.4-5.0); Alkaline Phosphatase 140 U/L (46-116); BUN 13 mg/dL (7-18); Bilirubin, Total 0.5 mg/dL (0.2-1.0); Calcium 9.4 mg/dL (8.5-10.1); Chloride 106 mmol/L (98-107); Glucose 89 mg/dL (74-106); Potassium 3.6 mmol/L (3.5-5.1); Sodium 142 mmol/L (136-145); Total Protein 7.8 g/dL (6.4-8.2); Troponin I < 0.05 ng/mL (<0.06)
[2021-01-20] MEDS: Normal Saline 1,000 ML 1000 ML IV (10:25)
[2021-01-20 10:33] LABS: TSH (W/Ref FT4) 1.35 uIU/mL (0.36-3.74)
[2021-01-20 10:34] LABS: D-Dimer 289 ng/mlFEU (<500)
--- NOTE | 2021-01-20 12:30 | RT.EKG_ITS ---
APPROVED REPORT Exam: Resting ECG Reason for Exam: dizziness Patient Location: E HR:52 bpm ECG Measurements Heart Rate 52 AXIS FL 145 P 70 QRSd 92 QRS 39 QT 430 T 40 QTc 399 Conclusion Sinus bradycardia...rate< 60. Sinus. I have reviewed and interpreted ECG and agree with software generated interpretation. No STEMI.
[2021-01-20 13:03] LABS: Troponin I < 0.05 ng/mL (<0.06)
--- NOTE | 2021-01-20 18:08 | NUR.NOTE ---
Nursing Note: referral copy to care management - libl 01/20/21
== END 2021-01-20 13:20 | disposition home or self-care (01) ==
PROVIDERS: Emergency Provider Physician Assistant; PCP Family Medicine
DX: R00.2 Palpitations (principal); F41.8 Other specified anxiety disorders; R42 Dizziness and giddiness
CPT/HCPCS: 36415; 80053; 93005; 96360; 96361; 99285; 71046; 83735; 84443; 84484; 85025; 85379; 93010

== ENCOUNTER 2021-02-09 09:25 | Outpatient (CLI) | payer OTHER, SELFPAY ==
--- NOTE | 2021-03-17 08:39 | W.CARDEVENT ---
Date of service: 03/17/21 Time of Service: 08:39 Cardiac Event Recorder Referring Provider:: mahesh garcia Indications:: Palpitations Cardiac Event Note: This is a 30-day event monitor ordered for palpitations. Predominant rhythm was sinus. Average heart rate was 62, minimum 42, maximum 151 There were no significant ventricular dysrhythmias There was no atrial fibrillation, no high-grade AV block, no pauses greater than 3 seconds Patient symptoms of lightheadedness dizziness and chest pain corresponded to sinus rhythm with heart rates of 59, 88, and 63
== END 2021-02-09 09:26 | disposition home or self-care (01) ==
LOC: RT 09:25
PROVIDERS: PCP Family Medicine; Visit Provider Family Medicine
DX: R00.2 Palpitations (principal)
CPT/HCPCS: 93270

== ENCOUNTER 2021-02-27 08:53 | Emergency (ER) | payer OTHER, SELFPAY ==
[2021-02-27] VITALS (51 sets, daily range): BP systolic 104–136; BP diastolic 51–75; PULSE 50–89; RESP 13–25; TEMP 36–36.6; O2SAT 97–100
--- NOTE | 2021-02-27 09:00 | RT.EKG_ITS ---
APPROVED REPORT Exam: Resting ECG Reason for Exam: chest pain Patient Location: E HR:65 bpm ECG Measurements Heart Rate 65 AXIS MO 140 P 74 QRSd 100 QRS 40 QT 387 T 52 QTc 401 Conclusion Sinus rhythm...normal P axis, V-rate 60- 99 sinus rhythm at 65, normal axis, no STEMI, nondiagnostic EKG
[2021-02-27 09:34] LABS: Abs Immature Grans 0.01 10^3/uL (0.0-0.06); Absolute Basophil Count 0.02 10^3/uL (0.0-0.2); Absolute Eosinophil Count 0.07 10^3/uL (0.0-0.7); Absolute Lymphocyte Count 1.54 10^3/uL (1.2-3.4); Absolute Monocyte Count 0.26 10^3/uL (0.1-0.8); Absolute Neutrophil Count 2.29 10^3/uL (1.2-6.7); Basophils % 0.5; Eosinophils % 1.7; HCT 41.4 % (36.0-46.0); HGB 13.4 g/dL (11.2-15.7); Immature Grans % 0.2; Lymphocytes % 36.8; MCH 28.3 pg (27.0-33.0); MCHC 32.4 % (32.0-36.0); MCV 87.3 fL (80-95); MPV 10.6 fL (8.0-11.0); Monocytes % 6.2; Neutrophils % 54.6; Nucleated RBC 0 %; Platelet Count 227 10^3/uL (130-400); RBC 4.74 10^6/uL (3.93-5.22); RDW 12.7 % (11.7-14.6); RDW-SD 40.4 fL; WBC 4.19 10^3/uL (4.4-10.8)
--- NOTE | 2021-02-27 09:50 | ED.GENADUL_ITS ---
Discharge Plan Disposition Patient Disposition: HOME Condition: Stable Discharge Details Clinical Impression: Chest pain, SOB (shortness of breath) Primary Care Provider: Sydnee Meléndez ED Provider: Dorothea Perez Home Meds and New Rx's Prescriptions: Continued rosuvastatin 20 mg Tablet 20 mg PO DAILY RF: 0 escitalopram oxalate 5 mg Tablet 5 mg PO DAILY RF: 0 Discharge Instructions Instructions: Chest Pain (ED), Dyspnea (ED) Additional Instructions: Please return immediately to the emergency department if you develop any new or worsening symptoms, if your condition does not improve as expected, or if you become otherwise concerned. It is extremely important that you call soon as possible to make an appointment to be seen in follow-up for this visit by your primary care doctor and a qa internship. You will also need to have a stress test as we discussed, which has been ordered. Referrals: Sydnee Meléndez [Primary Care Provider] - Yevgeniy Childress MD [MD CONSULTING PHYSICIAN] - Discharge Data Discharge Date/Time-TO BE ENTERED AT DEPARTURE: 02/27/21 14:31 Medical Decision Making Julianna Mercado is a 55-year-old woman with history of GERD, depression, hyperlipidemia who presented to the emergency department with chest pressure not currently occurring. On exam patient is well and nontoxic-appearing. Benign cardiopulmonary exam. There is mild anterior left-sided chest tenderness to palpation without other chest wall findings. Benign examination of the abdomen and extremities. Concern for ACS, pulmonary embolism, musculoskeletal pain, GERD, other. Exam/history at this time is not consistent with sepsis, acute aortic pathology, acute emergent intra-abdominal pathology, upper extremity DVT, acute vascular pathology of the left upper extremity. EKG obtained and nondiagnostic. Plan for IV placement, telemetry, screening labs, chest x-ray. Will monitor and reassess. Plan for repeat EKG, repeat troponin if initial work-up negative. Labs reviewed, troponin negative, D-dimer normal, WBC 4.19, hemoglobin 13.4. Patient remains pain-free on reassessment. Repeat troponin negative repeat EKG without major change from prior. X-ray negative. Patient continues to be pain-free in the emergency department. Patient is low risk by HEART score, plan for outpatient follow-up, outpatient stress test which was ordered by me. Patient is amenable to plan. I had a lengthy discussion with Patient regarding return to emergency department precautions, home care, and importance of outpatient follow-up. Pt verbalizes understanding of the plan and is amenable. Patient discharged to home with clear plan for outpatient follow-up. All questions were answered. Disposition decision was made weighing the risks and benefits of hospitalization versus outpatient treatment, the risk for further decompensation, and the patient's wishes. Medical Records Medical records reviewed: Yes I reviewed the patient's medical records. Imaging Data Radiologic Study: Attestation: I personally reviewed and interpreted this imaging study as follows: Radiologist's impression: EXAM: XR CHEST 2V PA LATERAL CLINICAL HISTORY: SOB TECHNIQUE: 2D digital imaging was performed. COMPARISON: CR XR CHEST 2V PA LATERAL from 01/20/2021 FINDINGS: MEDIASTINUM: Normal. HEART: Normal. PULMONARY VASCULATURE: Normal. LUNGS: Clear. PLEURAL SPACE: No pleural effusion or pneumothorax. BONE:Unremarkable for age. There is a monitoring device in the anterior left upper chest wall. IMPRESSION: No acute abnormality. Lab Data Lab results reviewed: Yes I reviewed the patient's lab results. Labs: Laboratory Tests Range/Units 02/27/21 02/27/21 02/27/21 09:17 09:17 09:17 WBC (4.4-10.8) 10^3/uL 4.19 L RBC (3.93-5.22) 10^6/uL 4.74 Hgb (11.2-15.7) g/dL 13.4 Hct (36.0-46.0) % 41.4 MCV (80-95) fL 87.3 MCH (27.0-33.0) pg 28.3 MCHC (32.0-36.0) % 32.4 RDW (11.7-14.6) % 12.7 Plt Count (130-400) 10^3/uL 227 MPV (8.0-11.0) fL 10.6 Immature Gran % 0.2 Neutrophils % 54.6 Lymphocytes % 36.8 Monocytes % 6.2 Eosinophils % 1.7 Basophils % 0.5 Nucleated RBC % % 0 Absolute Neutrophils (1.2-6.7) 10^3/uL 2.29 Absolute Lymphocytes (1.2-3.4) 10^3/uL 1.54 Absolute Monocytes (0.1-0.8) 10^3/uL 0.26 Absolute Eosinophils (0.0-0.7) 10^3/uL 0.07 Absolute Basophils (0.0-0.2) 10^3/uL 0.02 PT (9.3-11.0) sec INR (0.9-1.1) D-Dimer (<500) ng/mlFEU 300 Sodium (136-145) mmol/L 143 Potassium (3.5-5.1) mmol/L 3.6 Chloride (98-107) mmol/L 106 Carbon Dioxide (21.0-32.0) mmol/L 31.5 Anion Gap (3-11) mmol/L 5.5 BUN (7-18) mg/dL 14 Creatinine (0.55-1.02) mg/dL 1.0 Estimated GFR/1.73 m2 (mL/min/1.73m2) 58.00 Glucose (74-106) mg/dL 86 Calcium (8.5-10.1) mg/dL 9.2 Magnesium (1.8-2.4) mg/dL 2.1 Total Bilirubin (0.2-1.0) mg/dL 0.3 AST (15-37) U/L 33 ALT (14-59) U/L 48 Alkaline Phosphatase (46-116) U/L 163 H Troponin I (<0.06) ng/mL < 0.05 NT-Pro-B Natriuret Pep (<300) pg/mL Total Protein (6.4-8.2) g/dL 7.6 Albumin (3.4-5.0) g/dL 4.0 TSH (0.36-3.74) uIU/mL Range/Units 02/27/21 02/27/21 02/27/21 09:17 09:17 09:17 WBC (4.4-10.8) 10^3/uL RBC (3.93-5.22) 10^6/uL Hgb (11.2-15.7) g/dL Hct (36.0-46.0) % MCV (80-95) fL MCH (27.0-33.0) pg MCHC (32.0-36.0) % RDW (11.7-14.6) % Plt Count (130-400) 10^3/uL MPV (8.0-11.0) fL Immature Gran % Neutrophils % Lymphocytes % Monocytes % Eosinophils % Basophils % Nucleated RBC % % Absolute Neutrophils (1.2-6.7) 10^3/uL Absolute Lymphocytes (1.2-3.4) 10^3/uL Absolute Monocytes (0.1-0.8) 10^3/uL Absolute Eosinophils (0.0-0.7) 10^3/uL Absolute Basophils (0.0-0.2) 10^3/uL PT (9.3-11.0) sec 9.7 INR (0.9-1.1) 1.0 D-Dimer (<500) ng/mlFEU Sodium (136-145) mmol/L Potassium (3.5-5.1) mmol/L Chloride (98-107) mmol/L Carbon Dioxide (21.0-32.0) mmol/L Anion Gap (3-11) mmol/L BUN (7-18) mg/dL Creatinine (0.55-1.02) mg/dL Estimated GFR/1.73 m2 (mL/min/1.73m2) Glucose (74-106) mg/dL Calcium (8.5-10.1) mg/dL Magnesium (1.8-2.4) mg/dL Total Bilirubin (0.2-1.0) mg/dL AST (15-37) U/L ALT (14-59) U/L Alkaline Phosphatase (46-116) U/L Troponin I (<0.06) ng/mL NT-Pro-B Natriuret Pep (<300) pg/mL 93 Total Protein (6.4-8.2) g/dL Albumin (3.4-5.0) g/dL TSH (0.36-3.74) uIU/mL 2.18 Range/Units 02/27/21 12:21 WBC (4.4-10.8) 10^3/uL RBC (3.93-5.22) 10^6/uL Hgb (11.2-15.7) g/dL Hct (36.0-46.0) % MCV (80-95) fL MCH (27.0-33.0) pg MCHC (32.0-36.0) % RDW (11.7-14.6) % Plt Count (130-400) 10^3/uL MPV (8.0-11.0) fL Immature Gran % Neutrophils % Lymphocytes % Monocytes % Eosinophils % Basophils % Nucleated RBC % % Absolute Neutrophils (1.2-6.7) 10^3/uL Absolute Lymphocytes (1.2-3.4) 10^3/uL Absolute Monocytes (0.1-0.8) 10^3/uL Absolute Eosinophils (0.0-0.7) 10^3/uL Absolute Basophils (0.0-0.2) 10^3/uL PT (9.3-11.0) sec INR (0.9-1.1) D-Dimer (<500) ng/mlFEU Sodium (136-145) mmol/L Potassium (3.5-5.1) mmol/L Chloride (98-107) mmol/L Carbon Dioxide (21.0-32.0) mmol/L Anion Gap (3-11) mmol/L BUN (7-18) mg/dL Creatinine (0.55-1.02) mg/dL Estimated GFR/1.73 m2 (mL/min/1.73m2) Glucose (74-106) mg/dL Calcium (8.5-10.1) mg/dL Magnesium (1.8-2.4) mg/dL Total Bilirubin (0.2-1.0) mg/dL AST (15-37) U/L ALT (14-59) U/L Alkaline Phosphatase (46-116) U/L Troponin I (<0.06) ng/mL < 0.05 NT-Pro-B Natriuret Pep (<300) pg/mL Total Protein (6.4-8.2) g/dL Albumin (3.4-5.0) g/dL TSH (0.36-3.74) uIU/mL ECG Data Attestation: I personally reviewed and interpreted this ECG (s) as follows: Interpretation: EKG 9:06 shows sinus rhythm at 65, normal axis, no STEMI, no major change from prior 01/20/2021, nondiagnostic EKG EKG 13: 10 shows sinus bradycardia 56, normal axis, no STEMI, no major change from prior, nondiagnostic EKG HPI General Mode of arrival: ambulatory . Date/Time Provider Initiated Documentation: 02/27/21 09:02 . Limitations to Documentation: no limitations . Information obtained by: patient, RN notes reviewed and old records reviewed . HPI Narrative: Julianna Mercado is a 55-year-old woman with a history of hyperlipidemia, GERD, depression presenting to the emergency department for chest pressure. Patient reports a somewhat complicated history over the past year. She states that May 2020 she began having a sensation of dizziness which she finds difficult to describe but states it is not a sensation of lightheadedness or feeling as if she is going to faint. She has also had shortness of breath and chest pressure at times, in addition to palpitations. Patient underwent reported extensive testing while she was in [place] in August 2020, including echocardiogram, which was normal. She saw Dr. Childress of cardiology in November 2020. She had a 48-hour Holter monitor which was nondiagnostic, and had a 30-day Holter monitor placed on February 09. Patient reports that she had a stress test which was negative in 2017. She states she has never had a cardiac catheterization. Patient reports that she has had worsening symptoms since around the time that the Holter monitor was placed on February 09. She reports a sensation of shortness of breath in the middle the night that wakes her up, and she has to get up and sit up in bed or in a chair to relieve symptoms. She also reports feeling of general fatigue and lack of energy. Over the past 4 to 5 days she has had worsening chest pressure and aching in her left arm in the area of her biceps and her left wrist. This is similar to what she has been experiencing since May 2020. She has also felt that her left hand has been cold at times. Patient called her PCP to be seen this morning, and they directed her to come to the emergency department instead of their office. Patient reports that she currently has no pain, feels that her left hand is somewhat cold. She denies fever, cough, vomiting, diarrhea, rash, numbness, weakness. No extremity edema. No personal or immediate family histor y of blood clots. No recent travel. Related Data Home Medications Medication Instructions Recorded Confirmed rosuvastatin 20 mg PO DAILY 11/13/20 01/20/21 escitalopram oxalate 5 mg PO DAILY 01/20/21 01/20/21 Allergies Allergy/AdvReac Type Severity Reaction Status Date / Time No Known Allergies Allergy Verified 02/27/21 09:04 General Stated Complaint: Chest Pain LALITO: 3 Review of Systems Narrative: Constitutional: denies fevers, reports fatigue Eyes: denies eye pain ENT: denies ear pain, dental pain, sore throat Cardiovascular: denies edema, reports chest pressure Respiratory: denies cough, reports SOB GI: denies abdominal pain, vomiting, diarrhea : denies flank pain MSK: denies back pain, neck pain, arthralgias, myalgias Skin: denies rash Neuro: denies headaches, numbness, weakness PFSH Medical History Anxiety Depression GERD (gastroesophageal reflux disease) Nasal polyps Overweight Surgical History Colonoscopy - MAC (05/24/17) Social History Smoking/Tobacco Use Status: Former Tobacco Use Smoking risk assessment performed?: Yes Alcohol Intake: former Drug use: Never Substance use type: does not use Household members: spouse 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 Do you feel safe at home: Yes Do you feel safe in your relationship?: Yes Exam Narrative Exam Narrative: Constitutional: well and [id number], pleasant, conversing normally HENT: head atraumatic/normocephalic/normal inspection, mucous membranes moist Eyes: conjunctiva normal, sclera normal, pupils 3mm b/l Neck: no stridor, normal ROM, trachea midline Chest: normal inspection, mild tenderness to palpation over the left anterior chest without mass/crepitus/edema/fluctuance/overlying skin changes Resp: normal work of breathing, LCTAB Cardio: normal rate, normal rhythm, no murmur appreciated GI: abdomen soft, non-tender, non-distended Back: normal inspection, no rash Skin: warm, dry, normal color, no rash Neuro: alert, not altered, grossly non-focal, normal tone Ext: no edema of upper or lower extremities bilaterally, no posterior calf tenderness to palpation, radial pulses intact and symmetric, bilateral fingers warm and well perfused with brisk cap refill, no temperature difference between hands affected by me, motor and sensation intact bilateral upper extremities Psych: normal mood, normal affect, normal behavior Course Vital Signs Vital signs: Vital Signs Temperature 36 C L 02/27/21 08:57 Pulse 67 02/27/21 08:57 Respiratory Rate 16 02/27/21 08:57 Blood Pressure 124/67 02/27/21 08:57 Pulse Oximetry 99 02/27/21 08:57 Temperature 36 C L 02/27/21 08:57 Temperature Source Temporal Artery Scan 02/27/21 08:57 Pulse 67 02/27/21 08:57 Respiratory Rate 16 02/27/21 08:57 Respiratory Effort 02/27/21 09:24 Respiratory Depth Normal 02/27/21 09:24 Respiratory Pattern Normal 02/27/21 09:24 Blood Pressure 124/67 02/27/21 08:57 Blood Pressure Position Sitting 02/27/21 08:57 Pulse Oximetry 99 02/27/21 08:57 Oxygen Delivery Method Room Air 02/27/21 08:57 Oxygen Flow Rate 0 02/27/21 08:57 Lab/Test Results Lab/Test Results: Laboratory Tests Range/Units 02/27/21 09:17 WBC (4.4-10.8) 10^3/uL 4.19 L RBC (3.93-5.22) 10^6/uL 4.74 Hgb (11.2-15.7) g/dL 13.4 Hct (36.0-46.0) % 41.4 MCV (80-95) fL 87.3 MCH (27.0-33.0) pg 28.3 MCHC (32.0-36.0) % 32.4 RDW (11.7-14.6) % 12.7 Plt Count (130-400) 10^3/uL 227 MPV (8.0-11.0) fL 10.6 Immature Gran % 0.2 Neutrophils % 54.6 Lymphocytes % 36.8 Monocytes % 6.2 Eosinophils % 1.7 Basophils % 0.5 Nucleated RBC % % 0 Absolute Neutrophils (1.2-6.7) 10^3/uL 2.29 Absolute Lymphocytes (1.2-3.4) 10^3/uL 1.54 Absolute Monocytes (0.1-0.8) 10^3/uL 0.26 Absolute Eosinophils (0.0-0.7) 10^3/uL 0.07 Absolute Basophils (0.0-0.2) 10^3/uL 0.02
[2021-02-27 09:54] LABS: ALT 48 U/L (14-59); AST 33 U/L (15-37); Alkaline Phosphatase 163 U/L (46-116); Anion Gap 5.5 mmol/L (3-11); BUN 14 mg/dL (7-18); Bilirubin, Total 0.3 mg/dL (0.2-1.0); CO2 31.5 mmol/L (21.0-32.0); Calcium 9.2 mg/dL (8.5-10.1); Chloride 106 mmol/L (98-107); Glucose 86 mg/dL (74-106); Magnesium 2.1 mg/dL (1.8-2.4); Potassium 3.6 mmol/L (3.5-5.1); Sodium 143 mmol/L (136-145); Total Protein 7.6 g/dL (6.4-8.2); Troponin I < 0.05 ng/mL (<0.06)
[2021-02-27 10:01] LABS: D-Dimer 300 ng/mlFEU (<500)
[2021-02-27 10:18] LABS: TSH (W/Ref FT4) 2.18 uIU/mL (0.36-3.74)
[2021-02-27 10:23] LABS: NT-proBNP 93 pg/mL (<300)
[2021-02-27 12:09] LABS: Prothrombin Time 9.7 sec (9.3-11.0)
[2021-02-27 12:51] LABS: Troponin I < 0.05 ng/mL (<0.06)
--- NOTE | 2021-02-27 13:00 | RT.EKG_ITS ---
APPROVED REPORT Exam: Resting ECG Reason for Exam: second ekg Patient Location: E HR:56 bpm ECG Measurements Heart Rate 56 AXIS NJ 149 P 77 QRSd 94 QRS 25 QT 421 T 32 QTc 406 Conclusion Sinus bradycardia...rate< 60 sinus bradycardia 56, normal axis, no STEMI, nondiagnostic EKG
--- NOTE | 2021-02-27 13:10 | DI.RAD_ITS ---
Exam(s) XR CHEST 2V PA LATERAL EXAM: XR CHEST 2V PA LATERAL CLINICAL HISTORY: SOB TECHNIQUE: 2D digital imaging was performed. COMPARISON: CR XR CHEST 2V PA LATERAL from 01/20/2021 FINDINGS: MEDIASTINUM: Normal. HEART: Normal. PULMONARY VASCULATURE: Normal. LUNGS: Clear. PLEURAL SPACE: No pleural effusion or pneumothorax. BONE:Unremarkable for age. There is a monitoring device in the anterior left upper chest wall. IMPRESSION: No acute abnormality. DATA REPOSITORY: RADIATION DOSE DELIVERED:
== END 2021-02-27 14:31 | disposition home or self-care (01) ==
PROVIDERS: Emergency Provider Student in an Organized Health Care Education/Training Program; PCP Family Medicine
DX: R07.9 Chest pain, unspecified (principal); R06.02 Shortness of breath
CPT/HCPCS: 36415; 80053; 93005; 99284; 71046; 83735; 83880; 84443; 84484; 85025; 85379; 85610; 93010

== ENCOUNTER 2021-03-06 00:27 | Outpatient (CLI) | payer OTHER, SELFPAY ==
--- NOTE | 2021-03-06 15:00 | ETT_ITS ---
APPROVED REPORT Exam: Exercise Treadmill Patient Location: Out-Patient Room/Bed: Stress Nurse: Oksana Gaspar RN Ordering Provider:AMALIA HELMS, Contact Number: [phone] BMI: 27.97 Baseline Rhythm: Sinus Bradycardia Indications: Chest pain Medical History Medical History: Hyperlipidemia, gerd, SOB, palpitations, anxiety, depression Cardiac Medications: None Allergies: NKA Cardiac Risk Factors: Hyperlipidemia, smoker (former), family hx Previous Cardiac Procedures: None Pretest Chest Pain Characteristics: None Exercise History: Physically active Physical Disabilities: None Lung Sounds: Clear to auscultation Heart Sounds: Regular Stress Test Details Test: Exercise stress testing was performed using a Ramy protocol. Rest Stress HR Resting HR Supine: 53 bpm Max Heart Rate (APMHR): 167 bpm Resting HR Standin bpm Target HR (85% APMHR): 141 bpm Max HR Achieved: 179 bpm % of APMHR: 107 Recovery HR: 84 bpm HR response to stress: Normal HR response to stress BP Resting BP Supine: 138/80 mmHg Resting BP Standin/76 mmHg Max BP: 162/72 mmHg Recovery BP: 130/68 mmHg BP response to stress: Normal blood pressure response to stress. ECG Resting ECG: Sinus Bradycardia Ectopy: None Stress ECG: Sinus Tachycardia ST Change: No significant ST segment changes noted Arrhythmia: None Recovery ECG: Sinus Rhythm Recovery ST Change: No significant ST segment changes noted Recovery Arrhythmia: None Clinical Reason for Termination: Fatigue Stress Symptoms: General Fatigue Exercise duration: 10 min50 sec Highest Stage Reached: 4 Exercise capacity: 13.21 METs Ba Treadmill Score: 9.2 Rate Pressure Product: [id number] Stress ECG Conclusion 1. Resting electrocardiogram was within normal limits 2. Patient exercised on the Ramy protocol and completed a workload of 13.21 METS, limited by fatigue 3. Normal heart rate and blood pressure response to exercise. Patient achieved greater than 100% of predicted heart rate for age 4. Electrocardiographically there was no evidence of myocardial ischemia 5. There were no dysrhythmias Ba Treadmill Score is 9.2 which is Low risk. Stress Test Summary STAGE Time (mins) Speed (mph) Grade (%) HR BP SYMPTOMS METS Supine 53 138/80 Standing 66 138/76 SpO2 98% 1 3 1.7 10 104 134/70 SpO2 97% 4.6 2 6 2.5 12 130 142/70 SpO2 97% 7 3 9 3.4 14 156 SpO2 97% 10.2 4 12 4.2 16 179 SpO2 97% 12.9 1 min recovery 146 142/78 SpO2 98% 3 min recovery 90 162/72 SpO2 98% 6 min recovery 84 130/68 SpO2 97%
== END 2021-03-06 00:47 ==
PROVIDERS: PCP Family Medicine; Visit Provider Student in an Organized Health Care Education/Training Program
DX: R07.9 Chest pain, unspecified (principal); E78.5 Hyperlipidemia, unspecified; Z87.891 Personal history of nicotine dependence; Z82.49 Family history of ischemic heart disease and other diseases of the circulatory system
CPT/HCPCS: 93016; 93018; 93017

== ENCOUNTER 2021-03-17 08:39 | Outpatient (CLI) | payer OTHER, SELFPAY | END 2021-03-17 08:40 | LOC: CARDO 03-27 11:27 | PROVIDERS: PCP Family Medicine; Referring Provider Family Medicine; Visit Provider Internal Medicine Cardiovascular Disease | DX: R00.2 Palpitations (principal) | CPT/HCPCS: 93272 ==

== ENCOUNTER 2021-04-07 08:44 | Emergency (ER) | payer OTHER, SELFPAY ==
--- NOTE | 2021-04-07 08:45 | RT.EKG_ITS ---
APPROVED REPORT Exam: Resting ECG Reason for Exam: CHEST PAIN Patient Location: E HR:62 bpm ECG Measurements Heart Rate 62 AXIS MO 139 P 75 QRSd 97 QRS 32 QT 388 T 43 QTc 395 Conclusion Sinus rhythm...normal P axis, V-rate 60- 99 sinus rhythm at 62, no acute ischemic changes, no STEMI, nondiagnostic EKG
[2021-04-07 08:47] VITALS: BP 119/77; PULSE 69; RESP 18; O2SAT 100
[2021-04-07 08:56] VITALS: RESP 18
[2021-04-07 09:34] LABS: Abs Immature Grans 0.01 10^3/uL (0.0-0.06); Absolute Basophil Count 0.01 10^3/uL (0.0-0.2); Absolute Eosinophil Count 0.06 10^3/uL (0.0-0.7); Absolute Lymphocyte Count 1.55 10^3/uL (1.2-3.4); Absolute Monocyte Count 0.27 10^3/uL (0.1-0.8); Absolute Neutrophil Count 2.92 10^3/uL (1.2-6.7); Basophils % 0.2; Eosinophils % 1.2; HCT 40.4 % (36.0-46.0); HGB 13.1 g/dL (11.2-15.7); Immature Grans % 0.2; Lymphocytes % 32.2; MCH 28.7 pg (27.0-33.0); MCHC 32.4 % (32.0-36.0); MCV 88.6 fL (80-95); MPV 10.5 fL (8.0-11.0); Monocytes % 5.6; Neutrophils % 60.6; Nucleated RBC 0 %; Platelet Count 239 10^3/uL (130-400); RBC 4.56 10^6/uL (3.93-5.22); RDW 12.7 % (11.7-14.6); RDW-SD 41.5 fL; WBC 4.82 10^3/uL (4.4-10.8)
[2021-04-07 09:48] LABS: Albumin 3.9 g/dL (3.4-5.0); Alkaline Phosphatase 165 U/L (46-116); BUN 15 mg/dL (7-18); Bilirubin, Total 0.4 mg/dL (0.2-1.0); CREATININE 0.9 mg/dL (0.55-1.02); Calcium 9.2 mg/dL (8.5-10.1); Glucose 89 mg/dL (74-106); Total Protein 7.6 g/dL (6.4-8.2)
[2021-04-07 09:49] LABS: ALT 35 U/L (14-59); AST 33 U/L (15-37); Anion Gap 5.8 mmol/L (3-11); CO2 30.2 mmol/L (21.0-32.0); Chloride 107 mmol/L (98-107); Magnesium 2.1 mg/dL (1.8-2.4); Potassium 3.7 mmol/L (3.5-5.1); Sodium 143 mmol/L (136-145); Troponin I < 0.05 ng/mL (<0.06)
[2021-04-07 10:10] LABS: D-Dimer 220 ng/mlFEU (<500)
--- NOTE | 2021-04-07 11:17 | ED.GENADUL_ITS ---
Discharge Plan Disposition Patient Disposition: HOME Condition: Stable Discharge Details Clinical Impression: Chest pain Primary Care Provider: Sydnee Meléndez ED Provider: Dorothea Perez Home Meds and New Rx's Prescriptions: New famotidine [Pepcid] 40 mg tablet 40 mg PO DAILY Qty: 30 RF: 0 Continued rosuvastatin 20 mg Tablet 20 mg PO DAILY RF: 0 escitalopram oxalate 5 mg Tablet 5 mg PO DAILY RF: 0 citalopram 20 mg Tablet 20 mg PO DAILY RF: 0 Discharge Instructions Instructions: Chest Pain (ED), GERD (Gastroesophageal Reflux Disease) (ED) Additional Instructions: Please return immediately to the emergency department if you develop any new or worsening symptoms, if your condition does not improve as expected, or if you become otherwise concerned. It is extremely important that you call soon as possible to make an appointment to be seen in follow-up for this visit by your primary care doctor and a building services coordinator as we discussed. Referrals: Sydnee Meléndez [Primary Care Provider] - Nyasia Mcginnis MD [ [facility] STAFF PHYSICIAN] - Discharge Data Discharge Date/Time-TO BE ENTERED AT DEPARTURE: 04/07/21 13:44 Medical Decision Making Julianna Mercado is a 55 y/o woman with h/o GERD, anxiety, depression who presented to the emergency department with chest pain, left forearm pain now resolved. On exam Pt is very well and non-toxic appearing. Benign cardiopulmonary, abdominal, and neurologic exam. LUE NVI. Concern for possible ACS, unlikely given similar symptoms in the past with r/o, GERD, COVID, other. Doubt PE. Exam/hx at this hernesto e not c/w acute aortic process, acute emergent intra-abdominal process, bacterial PNA, PTX, UE DVT, other acute emergent infectious/vascular/neurologic process of the LUE. Plan for EKG, screening labs, telemetry. Will repeat EKG, trop if initial w/u neg. EKG okay. Trop negative. Pt remains symptom free. Pt discussed that she has no diagnosis of GERD (this is listed as a problem in her chart), and is not taking any GERD medications. She states that she has sisters with significant esophageal issues, and wonders if burning sensation in her chest could be related to GERD. This is certainly possible. Repeat trop and EKG neg. Record review, Pt's reported hx shows the following: Multiple reported cardiac evals in [place] including echo beginning winter/spring 2020 seen 11/13/20 in ED for palpitations Seen 11/14/20 in ED for palpitations Had Holter monitor 11/14/20, one PVC and 8 PACs in 48 hour period Saw Cardiology 12/08/20 Seen 01/20/21 in ED for palpitations Seen 02/27/21 in ED for chest pain Negative stress test performed 03/06/21 Seen in [facility] ED 04/02/21 for chest pain Pt remains symptom free. Unclear etiology of Pt's symptoms, unlikely cardiac in nature given nature of symptoms and multiple extensive w/u. Plan for Rx pepcid, outpt f/u for GI eval and with PCP. I had a lengthy discussion with Patient regarding return to emergency department precautions, home care, and importance of outpatient follow-up. Pt verbalizes understanding of the plan and is amenable. Patient discharged to home with clear plan for outpatient follow-up. All questions were answered. Disposition decision was made weighing the risks and benefits of hospitalization versus outpatient treatment, the risk for further decompensation, and the patient's wishes. Medical Records Medical records reviewed: Yes I reviewed the patient's medical records. Lab Data Lab results reviewed: Yes I reviewed the patient's lab results. Labs: Laboratory Tests Range/Units 04/07/21 04/07/21 04/07/21 09:25 09:25 09:25 WBC (4.4-10.8) 10^3/uL 4.82 RBC (3.93-5.22) 10^6/uL 4.56 Hgb (11.2-15.7) g/dL 13.1 Hct (36.0-46.0) % 40.4 MCV (80-95) fL 88.6 MCH (27.0-33.0) pg 28.7 MCHC (32.0-36.0) % 32.4 RDW (11.7-14.6) % 12.7 Plt Count (130-400) 10^3/uL 239 MPV (8.0-11.0) fL 10.5 Immature Gran % 0.2 Neutrophils % 60.6 Lymphocytes % 32.2 Monocytes % 5.6 Eosinophils % 1.2 Basophils % 0.2 Nucleated RBC % % 0 Absolute Neutrophils (1.2-6.7) 10^3/uL 2.92 Absolute Lymphocytes (1.2-3.4) 10^3/uL 1.55 Absolute Monocytes (0.1-0.8) 10^3/uL 0.27 Absolute Eosinophils (0.0-0.7) 10^3/uL 0.06 Absolute Basophils (0.0-0.2) 10^3/uL 0.01 D-Dimer (<500) ng/mlFEU 220 Sodium (136-145) mmol/L 143 Potassium (3.5-5.1) mmol/L 3.7 Chloride (98-107) mmol/L 107 Carbon Dioxide (21.0-32.0) mmol/L 30.2 Anion Gap (3-11) mmol/L 5.8 BUN (7-18) mg/dL 15 Creatinine (0.55-1.02) mg/dL 0.9 Estimated GFR/1.73 m2 (mL/min/1.73m2) >= 60.00 Glucose (74-106) mg/dL 89 Calcium (8.5-10.1) mg/dL 9.2 Magnesium (1.8-2.4) mg/dL 2.1 Total Bilirubin (0.2-1.0) mg/dL 0.4 AST (15-37) U/L 33 ALT (14-59) U/L 35 Alkaline Phosphatase (46-116) U/L 165 H Troponin I (<0.06) ng/mL < 0.05 Total Protein (6.4-8.2) g/dL 7.6 Albumin (3.4-5.0) g/dL 3.9 Range/Units 04/07/21 12:25 WBC (4.4-10.8) 10^3/uL RBC (3.93-5.22) 10^6/uL Hgb (11.2-15.7) g/dL Hct (36.0-46.0) % MCV (80-95) fL MCH (27.0-33.0) pg MCHC (32.0-36.0) % RDW (11.7-14.6) % Plt Count (130-400) 10^3/uL MPV (8.0-11.0) fL Immature Gran % Neutrophils % Lymphocytes % Monocytes % Eosinophils % Basophils % Nucleated RBC % % Absolute Neutrophils (1.2-6.7) 10^3/uL Absolute Lymphocytes (1.2-3.4) 10^3/uL Absolute Monocytes (0.1-0.8) 10^3/uL Absolute Eosinophils (0.0-0.7) 10^3/uL Absolute Basophils (0.0-0.2) 10^3/uL D-Dimer (<500) ng/mlFEU Sodium (136-145) mmol/L Potassium (3.5-5.1) mmol/L Chloride (98-107) mmol/L Carbon Dioxide (21.0-32.0) mmol/L Anion Gap (3-11) mmol/L BUN (7-18) mg/dL Creatinine (0.55-1.02) mg/dL Estimated GFR/1.73 m2 (mL/min/1.73m2) Glucose (74-106) mg/dL Calcium (8.5-10.1) mg/dL Magnesium (1.8-2.4) mg/dL Total Bilirubin (0.2-1.0) mg/dL AST (15-37) U/L ALT (14-59) U/L Alkaline Phosphatase (46-116) U/L Troponin I (<0.06) ng/mL < 0.05 Total Protein (6.4-8.2) g/dL Albumin (3.4-5.0) g/dL ECG Data Attestation: I personally reviewed and interpreted this ECG (s) as follows: Interpretation: EKG shows sinus rhythm at 62, normal axis, no acute ischemic changes, nondiagnostic EKG Repeat EKG 12:26 shows sinus bradycardia at 54, normal axis, no acute ischemic changes, nondiagnostic EKG HPI General Mode of arrival: ambulatory . Date/Time Provider Initiated Documentation: 04/07/21 09:17 . Limitations to Documentation: no limitations . Information obtained by: patient, RN notes reviewed and old records reviewed . HPI Narrative: Julianna Mercado is a 55 y/o woman with h/o GERD, anxiety, depression presenting to the emergency department chest pain, left forearm pain. Pt reports that this morning at 0630 while seated she developed aching in her left forearm and then a warm sensation in her chest. Pt reports that she has a h/o panic attacks and was concerned that she having a panic attack, however symptoms lasted for longer than usual. Pt reports symptoms resolved spontaneously at 0800. Pt reports that she currently feels well and in her usual state of health and is symptom free. Pt reports that symptoms are similar to what she presented in ED for on 02/27/21, had negative cardiac work up. Denies any other pain, fevers, cough, swelling, vomiting, diarrhea, numbness, weakness, rash. Pt reports that while hikinh/walking recently she felt somewhat more SOB than usual, but has not otherwise had SOB. Had no chest pain with exertion. Pt reports that she had similar chest pain, forearm pain this past 04/02/21, had apparent cardiac work up that was negative (Pt reports labs, EKG, CXR, performed, was discharged to home). Pt reports that she recently had brain MRI performed and is seeing a neurologist at [facility] for various symptoms including intermittent localized weakness/numbness (not currently occurring) and intermittent diplopia (not currently occurring), reports that MRI showed changes concerning for multiple sclerosis vs tumor, Pt reports she is scheduled for outpt lumbar puncture at [facility] next week. Related Data Home Medications Medication Instructions Recorded Confirmed rosuvastatin 20 mg PO DAILY 11/13/20 01/20/21 escitalopram oxalate 5 mg PO DAILY 01/20/21 01/20/21 citalopram 20 mg PO DAILY 04/07/21 04/07/21 famotidine [Pepcid] 40 mg PO DAILY #30 tab 04/07/21 Previous Rx's Medication Instructions Recorded famotidine [Pepcid] 40 mg PO DAILY #30 tab 04/07/21 Allergies Allergy/AdvReac Type Severity Reaction Status Date / Time No Known Allergies Allergy Verified 04/07/21 09:45 General Stated Complaint: Chest Pain LALITO: 3 Review of Systems Narrative: Constitutional: denies fevers Eyes: denies eye pain, vision changes ENT: denies ear pain, dental pain, sore throat Cardiovascular: denies edema, reports chest pain Respiratory: denies SOB, cough GI: denies abdominal pain, vomiting, diarrhea : denies flank pain MSK: denies back pain, neck pain, arthralgias, reports forearm pain Skin: denies rash Neuro: denies headaches, numbness, weakness [facility] Medical History Anxiety Depression GERD (gastroesophageal reflux disease) Nasal polyps Overweight Surgical History Colonoscopy - MAC (05/24/17) Social History Smoking/Tobacco Use Status: Former Tobacco Use Smoking risk assessment performed?: Yes Alcohol Intake: former Drug use: Never Substance use type: does not use Household members: spouse 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 Do you feel safe at home: Yes Do you feel safe in your relationship?: Yes Exam Narrative Exam Narrative: Constitutional: well and [id number], pleasant, conversing normally HENT: head atraumatic/normocephalic/normal inspection, mucous membranes moist Eyes: conjunctiva normal, sclera normal, pupils 3mm b/l Neck: no stridor, normal ROM, trachea midline Chest: normal inspection, no TTP Resp: normal work of breathing, LCTAB Cardio: normal rate, normal rhythm, no murmur appreciated GI: abdomen soft, non-tender, non-distended Back: normal inspection, no rash Skin: warm, dry, normal color, no rash Neuro: alert, not altered, field software engineer 2-12 intact, motor 5/5 throughout, normal tone Ext: no edema, no posterior calf TTP. Left arm without edema, rash, color change, or TTP. Radial pulses intact and symmetric. Psych: normal mood, normal affect, normal behavior Course Vital Signs Vital signs: Vital Signs Pulse 69 04/07/21 08:47 Respiratory Rate 18 04/07/21 08:47 Blood Pressure 119/77 04/07/21 08:47 Pulse Oximetry 100 04/07/21 08:47 Pulse 69 04/07/21 08:47 Respiratory Rate 18 04/07/21 08:56 Respiratory Effort Non-Labored 04/07/21 09:47 Respiratory Depth Normal 04/07/21 08:56 Respiratory Pattern Normal 04/07/21 08:56 Blood Pressure 119/77 04/07/21 08:47 Blood Pressure Position Sitting 04/07/21 08:47 Pulse Oximetry 100 04/07/21 08:47 Oxygen Delivery Method Room Air 04/07/21 08:47 Oxygen Flow Rate 0 04/07/21 08:47 Lab/Test Results Lab/Test Results: Laboratory Tests Range/Units 04/07/21 04/07/21 04/07/21 09:25 09:25 09:25 WBC (4.4-10.8) 10^3/uL 4.82 RBC (3.93-5.22) 10^6/uL 4.56 Hgb (11.2-15.7) g/dL 13.1 Hct (36.0-46.0) % 40.4 MCV (80-95) fL 88.6 MCH (27.0-33.0) pg 28.7 MCHC (32.0-36.0) % 32.4 RDW (11.7-14.6) % 12.7 Plt Count (130-400) 10^3/uL 239 MPV (8.0-11.0) fL 10.5 Immature Gran % 0.2 Neutrophils % 60.6 Lymphocytes % 32.2 Monocytes % 5.6 Eosinophils % 1.2 Basophils % 0.2 Nucleated RBC % % 0 Absolute Neutrophils (1.2-6.7) 10^3/uL 2.92 Absolute Lymphocytes (1.2-3.4) 10^3/uL 1.55 Absolute Monocytes (0.1-0.8) 10^3/uL 0.27 Absolute Eosinophils (0.0-0.7) 10^3/uL 0.06 Absolute Basophils (0.0-0.2) 10^3/uL 0.01 D-Dimer (<500) ng/mlFEU 220 Sodium (136-145) mmol/L 143 Potassium (3.5-5.1) mmol/L 3.7 Chloride (98-107) mmol/L 107 Carbon Dioxide (21.0-32.0) mmol/L 30.2 Anion Gap (3-11) mmol/L 5.8 BUN (7-18) mg/dL 15 Creatinine (0.55-1.02) mg/dL 0.9 Estimated GFR/1.73 m2 (mL/min/1.73m2) >= 60.00 Glucose (74-106) mg/dL 89 Calcium (8.5-10.1) mg/dL 9.2 Magnesium (1.8-2.4) mg/dL 2.1 Total Bilirubin (0.2-1.0) mg/dL 0.4 AST (15-37) U/L 33 ALT (14-59) U/L 35 Alkaline Phosphatase (46-116) U/L 165 H Troponin I (<0.06) ng/mL < 0.05 Total Protein (6.4-8.2) g/dL 7.6 Albumin (3.4-5.0) g/dL 3.9
--- NOTE | 2021-04-07 12:15 | RT.EKG_ITS ---
APPROVED REPORT Exam: Resting ECG Reason for Exam: chest pain Patient Location: E HR:54 bpm ECG Measurements Heart Rate 54 AXIS MS 147 P 58 QRSd 98 QRS 27 QT 439 T 33 QTc 416 Conclusion Sinus bradycardia...rate< 60 sinus bradycardia at 54, normal axis, no acute ischemic changes, nondiagnostic EKG
[2021-04-07 12:31] VITALS: BP 114/72; PULSE 52; RESP 18; TEMP 36.9; O2SAT 98
[2021-04-07 12:47] LABS: Troponin I < 0.05 ng/mL (<0.06)
[2021-04-07 13:24] VITALS: BP 112/64; PULSE 51; TEMP 36.8; O2SAT 98
--- NOTE | 2021-04-07 13:25 | NUR.NOTE ---
Nursing Note: Referral [facility] for evaluation for endoscopy/heart burn in 1 to 2 weeks. Vivian Dorantes
[2021-04-08 18:22] LABS: COVID-19 RT-PCR UVMMC Result Negative (Negative)
--- NOTE | 2021-04-09 09:21 | NUR.NOTE ---
message left on her machine that covid test was negative.Nursing Note:
== END 2021-04-07 13:44 | disposition home or self-care (01) ==
PROVIDERS: Emergency Provider Student in an Organized Health Care Education/Training Program; PCP Family Medicine
DX: R07.9 Chest pain, unspecified (principal); M79.632 Pain in left forearm; Z20.822 Contact with and (suspected) exposure to COVID-19
CPT/HCPCS: 36415; 80053; 93005; 99283; U0003; 83735; 84484; 85025; 85379; 93010

== ENCOUNTER 2021-08-31 08:49 | Outpatient (CLI) | payer OTHER, SELFPAY ==
--- NOTE | 2021-08-31 | DI.MAMMO_ITS ---
Exam(s) MAMMO SCREENING EXAM: MAMMO SCREENING CLINICAL HISTORY: SCREENING, [id number] TECHNIQUE: Bilateral full field digital CC and MLO mammographic images were obtained with 3D tomosyn thesis and utilizing computer aided detection (CAD). COMPARISON: Available for comparison. FINDINGS: Masses/Architectural Distortion: None seen. Microcalcifications: No suspicious pleomorphic-type are seen. Skin Thickening/Nipple Retraction: None. IMPRESSION: 1. No significant interval change with no specific features of malignancy noted. 2. Unless there is more urgent need, screening mammography is recommended, as per [employer] guidelines. BI-RADS Category 1 - Negative Breast Density - Category B - Scattered areas of fibroglandular density Breast density category C or D implies that the patient has dense breast tissue. Dense breast tissue is very common and is not abnormal but dense breast tissue can make it harder to find cancer on a ma mmogram. Also, dense breast tissue may increase their breast cancer risk. This information about the result of the mammogram report was provided to the patient to raise their awareness. Use this report when you speak with the patient about their risks for breast cancer, which includes their family hist ory. At that time, you may recommend for more screening tests (Ultrasound or MRI) as they might be us eful based on their risk. A negative radiographic report should not delay biopsy if a dominant or clinically suspicious mass is present. Up to ten percent of cancers are not identified on mammography. A negative report may reinforce clinical impression. Adenosis and dense breasts may obscure an underlying neoplasm. False positive reports average 6 to 10%. Patient will receive a letter notifying them of these results.
== END 2021-08-31 09:09 ==
PROVIDERS: PCP Family Medicine; Visit Provider Nurse Practitioner Acute Care
DX: Z12.31 Encounter for screening mammogram for malignant neoplasm of breast (principal)
CPT/HCPCS: 77063; 77067

== ENCOUNTER 2022-10-12 00:34 | Outpatient (CLI) | payer OTHER, SELFPAY ==
--- NOTE | 2022-10-12 15:15 | DI.MAMMO_ITS ---
Exam(s) MAMMO SCREENING EXAM: MAMMO SCREENING CLINICAL HISTORY: SCREENING, 12., [id number] TECHNIQUE: Bilateral full field digital CC and MLO mammographic images were obtained with 3D tomosyn thesis and utilizing computer aided detection (CAD). COMPARISON: Available for comparison. FINDINGS: Masses/Architectural Distortion: None seen. Microcalcifications: No suspicious pleomorphic-type are seen. Skin Thickening/Nipple Retraction: None. IMPRESSION: 1. No significant interval change with no specific features of malignancy noted. 2. Unless there is more urgent need, screening mammography is recommended, as per [employer] guidelines. BI-RADS Category 1 - Negative Breast Density - Category B - Scattered areas of fibroglandular density Breast density category C or D implies that the patient has dense breast tissue. Dense breast tissue is very common and is not abnormal but dense breast tissue can make it harder to find cancer on a ma mmogram. Also, dense breast tissue may increase their breast cancer risk. This information about the result of the mammogram report was provided to the patient to raise their awareness. Use this report when you speak with the patient about their risks for breast cancer, which includes their family hist ory. At that time, you may recommend for more screening tests (Ultrasound or MRI) as they might be us eful based on their risk. A negative radiographic report should not delay biopsy if a dominant or clinically suspicious mass is present. Up to ten percent of cancers are not identified on mammography. A negative report may reinforce clinical impression. Adenosis and dense breasts may obscure an underlying neoplasm. False positive reports average 6 to 10%. Patient will receive a letter notifying them of these results.
== END 2022-10-12 00:54 ==
LOC: DI 00:34
PROVIDERS: PCP Family Medicine; Visit Provider Nurse Practitioner Acute Care
DX: Z12.31 Encounter for screening mammogram for malignant neoplasm of breast (principal)
CPT/HCPCS: 77063; 77067

== ENCOUNTER 2023-01-17 10:09 | Emergency (ER) | payer OTHER, SELFPAY ==
[2023-01-17 10:14] VITALS: BP 135/68; PULSE 71; RESP 16; TEMP 36.8; O2SAT 98
--- NOTE | 2023-01-17 10:29 | DI.RAD_ITS ---
Exam(s) XR ANKLE LT COMPLETE EXAM: XR ANKLE LT COMPLETE CLINICAL HISTORY: pain s/p fall. TECHNIQUE: 2D digital imaging was performed. COMPARISON: No exams were available for comparison FINDINGS: 3 views Soft tissue swelling laterally but no evidence of acute fracture or widening of the ankle mortise. T alar dome unremarkable. Bone density normal. No osseous lesions. Moderate size inferior calcaneal spur noted. IMPRESSION: Soft tissue swelling but no fracture evident. DATA REPOSITORY: RADIATION DOSE DELIVERED:
--- NOTE | 2023-01-17 10:29 | W.ED.GENAD ---
Discharge Plan Disposition Patient Disposition: Home Condition: Stable Discharge Details Clinical Impression: Sprain of ankle, left Primary Care Provider: Sydnee Meléndez ED Provider: Trey Rasheed Home Meds and New Rx's Prescriptions: Continued rosuvastatin 20 mg Tablet 20 mg PO DAILY escitalopram oxalate 5 mg Tablet 5 mg PO DAILY citalopram 20 mg Tablet 20 mg PO DAILY famotidine [Pepcid] 40 mg tablet 40 mg PO DAILY Qty: 30 0RF Discharge Instructions Instructions: Ankle Sprain (ED) Additional Instructions: follow up with your primary care provider if pain continues in a week if you feel more ill, have severe worsening pain or new pain such as chest pain return to the emergency department Medical Decision Making 57 yo female comes in with left ankle pain after her dog around 8pm last night ran into the back of her legs causing her to fall and she states she twisted her left ankle. Denies head injury or loc. She has pain over the lateral malleolus and so came here. She denies head pain, neck pain, chest pain, abdomen pain, back pain. She has no tenderness or pain in the left hip, femur, knee, proximal or mid tib/fib. She is tender with mild swelling over the lateral malleolus, no posterior ankle pain or pain over the achiles, has full rom and no tenderness of the metatarsals with intact sensation and pulses. Suspect ankle sprain but will xray to evaluate for fracture no acute findings on xray, pt stable, suspect ankle sprain, will place in short walking boot and advised if still in pain in aweek to see pcp, return precautions given. She has her own pair of crutches Differential Diagnosis Differential Diagnosis: fracture, contusion, sprain Imaging Data Radiologic Study: Attestation: I personally reviewed and interpreted this imaging study as follows: Imaging: X-Ray Radiologist's impression: no acute findings HPI General Date/Time Provider Initiated Documentation: 01/17/23 10:22. Limitations to Documentation: no limitations. Information obtained by: patient. History of Present Illness 57 year old F presents to the emergency department with the chief complaint of left ankle pain, described as moderate, Quality is described as aching, Patient started experiencing this day(s) (1) and it has been constant. Rest improves symptom(s), Movement worsens symptoms . Patient notes no other symptoms.. Patient did receive the following treatments prior to arrival, none Related Data Home Medications Medication Instructions Recorded Confirmed rosuvastatin 20 mg tablet 20 mg PO DAILY 11/13/20 01/17/23 escitalopram oxalate 5 mg tablet 5 mg PO DAILY 01/20/21 01/20/21 citalopram 20 mg tablet 20 mg PO DAILY 04/07/21 04/07/21 famotidine 40 mg tablet (Pepcid) 40 mg PO DAILY #30 tabs 04/07/21 Previous Rx's Medication Instructions Recorded famotidine 40 mg tablet (Pepcid) 40 mg PO DAILY #30 tabs 04/07/21 Allergies Allergy/AdvReac Type Severity Reaction Status Date / Time No Known Allergies Allergy Verified 01/17/23 10:19 General Stated Complaint: Orthopedic LALITO: 4 Review of Systems All systems reviewed & are unremarkable except as noted in HPI and below Constitutional Constitutional: Denies chills, Denies fever(s) and Denies weakness Cardiovascular Cardiovascular: Denies chest pain and Denies dyspnea Respiratory Respiratory: Denies cough and Denies dyspnea Gastrointestinal Gastrointestinal: Denies abdominal pain, Denies nausea and Denies vomiting Integumentary/Breasts Skin/Breast: Denies rash Neurologic Neurologic: Denies weakness Endocrine Endocrine: Denies cold intolerance PFSH All Active Problems (Updated 01/17/23 @ 11:59 by Trey Rasheed MD) Palpitations (Acute) Chest pain (Acute) SOB (shortness of breath) (Acute) Chest pain (Acute) Sprain of ankle, left (Acute) Palpitations (Acute) Medical History Anxiety Depression GERD (gastroesophageal reflux disease) Nasal polyps Overweight Surgical History Colonoscopy - MAC (05/24/17) Social History Smoking/Tobacco Use Status: Former Tobacco Use Smoking risk assessment performed?: Yes Alcohol Intake: former Drug use: Never Substance use type: does not use Household members: spouse Housing: house 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 Do you feel safe at home: Yes Do you feel safe in your relationship?: Yes Exam Const General: no acute distress Orientation: alert HENMT Head: normal to inspection Ears: external ears normal General nose exam: external nose normal Mouth: moist mucous membranes Eyes General: appearance normal, both eyes and all related structures Neck Neck: normal visual inspection Resp Effort & Inspection: normal respiratory effort and able to speak in complete sentences Cardio Rate: regular rate Skin General skin exam: no rashes or lesions noted Neuro General: patient alert and patient oriented x3 Extrem General: full ROM and capillary refill normal Psych Mental Status: mental status grossly normal Course Vital Signs Vital signs: Vital Signs Temperature 36.8 C 01/17/23 10:14 Pulse 71 01/17/23 10:14 Respiratory Rate 16 01/17/23 10:14 Blood Pressure 135/68 01/17/23 10:14 Pulse Oximetry 98 01/17/23 10:14 Temperature 36.8 C 01/17/23 10:14 Temperature Source Temporal Artery Scan 01/17/23 10:14 Pulse 71 01/17/23 10:14 Respiratory Rate 16 01/17/23 10:14 Respiratory Effort Normal 01/17/23 10:17 Blood Pressure 135/68 01/17/23 10:14 Blood Pressure Position Sitting 01/17/23 10:14 Pulse Oximetry 98 01/17/23 10:14 Oxygen Delivery Method Room Air 01/17/23 10:14 Oxygen Flow Rate 0 01/17/23 10:14 Pain Level 8 01/17/23 10:17
[2023-01-17] MEDS: Ibuprofen 600 MG TAB PO (10:33)
== END 2023-01-17 12:20 | disposition home or self-care (01) ==
PROVIDERS: Emergency Provider Emergency Medicine; PCP Family Medicine
DX: S93.402A Sprain of unspecified ligament of left ankle, initial encounter (principal); M77.32 Calcaneal spur, left foot; W54.1XXA Struck by dog, initial encounter; Y93.89 Activity, other specified; Y92.098 Other place in other non-institutional residence as the place of occurrence of the external cause; Y99.9 Unspecified external cause status
CPT/HCPCS: 99283; 73610

== ENCOUNTER 2024-09-10 10:52 | Inpatient (IN) | payer OTHER, SELFPAY ==
[2024-09-10] VITALS (7 sets, daily range): BP systolic 121–165; BP diastolic 67–94; PULSE 58–63; RESP 12–22; TEMP 36.1–36.9; O2SAT 94–98
--- NOTE | 2024-09-10 10:45 | RT.EKG_ITS ---
APPROVED REPORT Exam: Resting ECG Reason for Exam: chest pain Patient Location: E HR:66 bpm ECG Measurements Heart Rate 66 AXIS AZ 137 P 62 QRSd 93 QRS 36 QT 393 T 40 QTc 413 Conclusion Sinus rhythm...normal P axis, V-rate 60- 99
[2024-09-10 11:53] LABS: Abs Immature Grans 0.01 10^3/uL (0.0-0.06); Absolute Basophil Count 0.03 10^3/uL (0.0-0.2); Absolute Eosinophil Count 0.19 10^3/uL (0.0-0.7); Absolute Lymphocyte Count 1.72 10^3/uL (1.2-3.4); Absolute Monocyte Count 0.18 10^3/uL (0.1-0.8); Absolute Neutrophil Count 2.38 10^3/uL (1.2-6.7); Basophils % 0.7 %; Eosinophils % 4.2 %; HCT 45.3 % (36.0-46.0); HGB 14.7 g/dL (11.2-15.7); Immature Grans % 0.2 %; Lymphocytes % 38.1 %; MCH 28.9 pg (27.0-33.0); MCHC 32.5 % (32.0-36.0); MCV 89 fL (80-95); Neutrophils % 52.8 %; Platelet Count 257 10^3/uL (130-400); RBC 5.08 10^6/uL (3.93-5.22); RDW 13.8 % (11.7-14.6); RDW-SD 44.9 fL; WBC 4.51 10^3/uL (4.4-10.8)
[2024-09-10 12:12] LABS: ALT 39 U/L (14-59); AST 36 U/L (15-37); Albumin 4.1 g/dL (3.4-5.0); Alkaline Phosphatase 158 U/L (46-116); Anion Gap 7.5 mmol/L (3-11); BUN 15 mg/dL (7-18); Bilirubin, Total 0.4 mg/dL (0.2-1.0); CO2 29.5 mmol/L (21.0-32.0); CREATININE 0.9 mg/dL (0.55-1.02); Chloride 104 mmol/L (98-107); Estimated GFR 74.57 (mL/min/1.73m2); Glucose 93 mg/dL (74-106); Lipase 28 U/L (<78); Potassium 3.9 mmol/L (3.5-5.1); Sodium 141 mmol/L (136-145); Total Protein 8.2 g/dL (6.4-8.2)
[2024-09-10 12:13] LABS: Troponin I 96 ng/L (<or=51)
[2024-09-10] MEDS: Aspirin 81 MG CHEW 324 MG CH (12:24)
--- NOTE | 2024-09-10 12:30 | RT.EKG_ITS ---
APPROVED REPORT Exam: Resting ECG Reason for Exam: chest pain Patient Location: E HR:64 bpm ECG Measurements Heart Rate 64 AXIS AL 145 P 61 QRSd 89 QRS 32 QT 395 T 31 QTc 407 Conclusion Sinus rhythm...normal P axis, V-rate 60- 99
[2024-09-10 13:05] LABS: D-Dimer 412 ng/mlFEU (<500)
[2024-09-10 13:19] LABS: Troponin I 91 ng/L (<or=51)
--- NOTE | 2024-09-10 13:45 | DI.RAD_ITS ---
Exam(s) XR CHEST 2V PA LATERAL EXAM: XR CHEST 2V PA LATERAL CLINICAL HISTORY: CHEST PAIN TECHNIQUE: 2D digital imaging was performed. Two views. COMPARISON: CR XR CHEST 2V PA LATERAL from 02/27/2021 FINDINGS: HEART: Normal size. Aorta: Not dilated. PULMONARY VASCULATURE: Normal. MEDIASTINUM: Unremarkable. LUNGS: Clear. PLEURAL SPACE: No pleural effusion or pneumothorax. BONE:Unremarkable for age. SOFT TISSUES: Unremarkable. IMPRESSION: No acute abnormality. DATA REPOSITORY: RADIATION DOSE DELIVERED:
[2024-09-10] MEDS: Clopidogrel 300 MG TAB PO (14:23)
[2024-09-10] MEDS: Rosuvastatin 5 MG TAB PO (14:23)
--- NOTE | 2024-09-10 14:34 | W.ED.GENAD ---
Discharge Plan Disposition Patient Disposition: Admit to [facility] Condition: Serious Discharge Details Clinical Impression: Chest pain, Elevated troponin Primary Care Provider: Sydnee Meléndez ED Provider: Sury Villagomez Home Meds and New Rx's Prescriptions: No Action escitalopram oxalate 5 mg Tablet 5 mg PO DAILY HPI General Date/Time Provider Initiated Documentation: 09/10/24 11:00. HPI Narrative: 59-year-old female with 1-month epigastric pain radiating to chest. Evaluated at [facility] ED on 08/19/2024; no acute abnormalities, cardiac evaluation normal. Persistent epigastric pain radiating to sternal region. Excruciating abdominal pain after consuming [place] fries two nights ago. No vomiting, intermittent nausea. No calf pain, swelling, recent leg surgeries, long drives, or history of coagulopathy. No specific exacerbating or alleviating factors. Related Data Home Medications ?Medication ?Instructions ?Recorded ?Confirmed escitalopram oxalate 5 mg tablet 5 mg PO DAILY 01/20/21 09/10/24 Allergies Allergy/AdvReac Type Severity Reaction Status Date / Time No Known Allergies Allergy Verified 09/10/24 11:00 General Stated Complaint: Chest Pain LALITO: 3 Exam Narrative Exam Narrative: General Appearance: Alert and oriented x4, no acute distress. Vital signs: Within normal limits. HEENT: Within normal limits. Respiratory: Within normal limits. Cardiovascular: Distal pulses intact bilaterally. Gastrointestinal: Mild epigastric tenderness. Back, Musculoskeletal: Ambulatory with steady gait. Extremities: No peripheral edema, no calf tenderness. Skin: Warm and dry, no rash. Neurological: Normal. Course Vital Signs Vital signs: Vital Signs Temperature 36.9 C 09/10/24 10:55 Pulse 62 09/10/24 10:55 Respiratory Rate 16 09/10/24 10:55 Blood Pressure 165/94 H 09/10/24 10:55 Pulse Oximetry 96 09/10/24 10:55 Temperature 36.9 C 09/10/24 10:55 Pulse 62 09/10/24 10:55 Respiratory Rate 16 09/10/24 10:55 Blood Pressure 165/94 H 09/10/24 10:55 Pulse Oximetry 96 09/10/24 10:55 Pain Level 8 09/10/24 10:55 Lab/Test Results Lab/Test Results: Laboratory Tests Range/Units 09/10/24 09/10/24 09/10/24 11:43 12:27 12:47 WBC (4.4-10.8) 10^3/uL 4.51 RBC (3.93-5.22) 10^6/uL 5.08 Hgb (11.2-15.7) g/dL 14.7 Hct (36.0-46.0) % 45.3 MCV (80-95) fL 89 MCH (27.0-33.0) pg 28.9 MCHC (32.0-36.0) % 32.5 RDW (11.7-14.6) % 13.8 Plt Count (130-400) 10^3/uL 257 MPV (8.0-11.0) fL 10.0 Immature Gran % % 0.2 Neutrophils % % 52.8 Lymphocytes % % 38.1 Monocytes % % 4.0 Eosinophils % % 4.2 Basophils % % 0.7 Nucleated RBC % (0.0-0.3) % 0.0 Absolute Neutrophils (1.2-6.7) 10^3/uL 2.38 Absolute Lymphocytes (1.2-3.4) 10^3/uL 1.72 Absolute Monocytes (0.1-0.8) 10^3/uL 0.18 Absolute Eosinophils (0.0-0.7) 10^3/uL 0.19 Absolute Basophils (0.0-0.2) 10^3/uL 0.03 D-Dimer (<500) ng/mlFEU 412 Sodium (136-145) mmol/L 141 Potassium (3.5-5.1) mmol/L 3.9 Chloride (98-107) mmol/L 104 Carbon Dioxide (21.0-32.0) mmol/L 29.5 Anion Gap (3-11) mmol/L 7.5 BUN (7-18) mg/dL 15 Creatinine (0.55-1.02) mg/dL 0.9 Est GFR (CKD-EPI 2020) (mL/min/1.73m2) 74.57 Glucose (74-106) mg/dL 93 Calcium (8.5-10.1) mg/dL 10.0 Total Bilirubin (0.2-1.0) mg/dL 0.4 AST (15-37) U/L 36 ALT (14-59) U/L 39 Alkaline Phosphatase (46-116) U/L 158 H Troponin I (<or=51) ng/L 96 H* 91 H* Total Protein (6.4-8.2) g/dL 8.2 Albumin (3.4-5.0) g/dL 4.1 Lipase (<78) U/L 28 Medical Decision Making Troponin 96, repeat 91 at 100 hours. D-dimer 412. EKG nonischemic, flipped T in lead V1 on reassessment. Initial Assessment: 59-year-old female presents with epigastric pain radiating into her chest, ongoing for the past month. Excruciating pain after eating [place] fries two nights ago. No vomiting, intermittent nausea. Mild epigastric tenderness, distal pulses intact, no peripheral edema or calf tenderness. Alert and oriented x4, ambulatory with steady gait. ED Course: - Troponin elevated (96 and 91) at 1 hour nataliya. - D-dimer 412. - Chest x-ray pending. - EKG nonischemic, flipped T in lead V1. - Telemetry monitoring initiated. - Administered 324 mg chewable aspirin. - Spoke with L, nurse practitioner at [facility]. - Accepted for further evaluation at [facility] by Dr. Pritchett tomorrow. Final Assessment: Persistent epigastric pain radiating to sternal region, ongoing for 1 month. Elevated troponin and D-dimer. EKG nonischemic with flipped T in lead V1. Plan includes Plavix 300 mg loading dose, Crestor 5 mg, and holding heparinization unless symptoms persist. Clinical Impression: - Epigastric pain. Disposition: - Discharge: Accepted for further evaluation at [facility] by Dr. Pritchett tomorrow. - Follow-Up: Dermatology transition tomorrow. [facility] Components Evaluation: - Number of Differential Diagnoses or Management Options: Epigastric pain. - Amount and Complexity of Data Reviewed: Troponin levels, D-dimer, EKG, chest x-ray pending. - Risk of Complication and Morbidity or Mortality: Elevated troponin and D-dimer, potential cardiac issues. Quality:[facility] Health Related Social Needs: No Data to Display [facility] All Active Problems (Updated 09/10/24 @ 14:36 by JEFFRY Marquez) Elevated troponin (Acute) Chest pain (Acute) SOB (shortness of breath) (Acute) Chest pain (Acute) Palpitations (Acute) Palpitations (Acute) Medical History Anxiety Depression GERD (gastroesophageal reflux disease) Nasal polyps Overweight Surgical History Colonoscopy - MAC (05/24/17) Social History Smoking/Tobacco Use Status: Former Tobacco Use Smoking risk assessment performed?: Yes Alcohol Intake: former Drug use: Never Substance use type: does not use Household members: spouse Housing: house 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
--- NOTE | 2024-09-10 14:57 | W.PM.HP.N ---
Date of service: 09/10/24 Time of Service: 14:57 Assessment and Plan Assessment and plan (1) Chest pain: Status: Acute Assessment and plan: Troponins and EKG were fairly benign but considering her history the patient was presented to [facility] cardiology who recommended follow-up evaluation with microscissors cardiac cath. Will admit the patient overnight until bed availability. I have already ordered a troponin at 2000 and adjust medication per this result patient patient was given full dose aspirin as well as loading dose Plavix as well as a statin but they recommended against starting a heparin drip. (2) Anxiety: Assessment and plan: home meds (3) SOB (shortness of breath): Status: Acute Assessment and plan: Most likely secondary to #1. Will await further information after cardiac evaluation. History of Present Illness History of Present Illness Chief Complaint: chest discomfort Narrative: This is a 29-year-old female who presents with a 1 month history of worsening dyspnea on exertion as well as occasional left substernal chest pain. The patient has an associated sense of doom when she is having these symptoms. Patient does endorse some worsening with exercise. Patient does endorse worsening shortness of breath with exercise as well. Patient states she did get a stress test approximately 5 years ago which was reported as within normal limits. 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 Patient denies any alcohol or tobacco use. Patient does have a family history of coronary artery disease with her father having CABG in his mid 70s. Patient does endorse a history of dyslipidemia which she is treating with naturopathic means. Per my discussion with the nurse practitioner led in the ED the patient has been accepted to [facility] for cardiac evaluation but will stay here secondary to bed availability at least until tomorrow. Review of Systems All systems reviewed & are unremarkable except as noted in HPI and below PFSH All Active Problems (Updated 09/10/24 @ 14:36 by JEFFRY Marquez) Elevated troponin (Acute) Chest pain (Acute) SOB (shortness of breath) (Acute) Chest pain (Acute) Palpitations (Acute) Palpitations (Acute) Medical History Anxiety Depression GERD (gastroesophageal reflux disease) Nasal polyps Overweight Surgical History Colonoscopy - MAC (05/24/17) Social History Smoking/Tobacco Use Status: Former Tobacco Use Smoking risk assessment performed?: Yes Alcohol Intake: former Drug use: Never Substance use type: does not use Household members: spouse Housing: house current occupation: works in services Do you feel safe at home: Yes Do you feel safe in your relationship?: Yes Meds Allergies and Home Medications Allergies Allergy/AdvReac Type Severity Reaction Status Date / Time No Known Allergies Allergy Verified 09/10/24 11:00 Home Medications ?Medication ?Instructions ?Recorded ?Confirmed ?Type escitalopram oxalate 5 mg tablet 5 mg PO DAILY 01/20/21 09/10/24 History Exam Narrative Exam Narrative: HEENT: NCAT MMM EOMI PERLLA NECK: NO LAD NO JVD NO THYROIDMEGALY CV: RRR NO MRG CTAB NO AMU ABD: SNTNDBSA EXT: NO CCE BILAT NEURO: CN2-12 INTACT TESTED, REFLEXES WNL PSYCH: AAOX3 NAD, CAN GIVE LINEAR HISTORY GEN: 59 Y/O FEMALE SEEMS HER STATED AGE, NO CURRENT DISTRESS Results Labs 09/10/24 11:43 09/10/24 11:43 Labs: Laboratory Results - last 24 hr 09/10/24 09/10/24 09/10/24 11:43 12:27 12:47 WBC 4.51 RBC 5.08 Hgb 14.7 Hct 45.3 MCV 89 MCH 28.9 MCHC 32.5 RDW 13.8 Plt Count 257 MPV 10.0 Immature Gran % 0.2 Neutrophils % 52.8 Lymphocytes % 38.1 Monocytes % 4.0 Eosinophils % 4.2 Basophils % 0.7 Nucleated RBC % 0.0 Absolute Neutrophils 2.38 Absolute Lymphocytes 1.72 Absolute Monocytes 0.18 Absolute Eosinophils 0.19 Absolute Basophils 0.03 D-Dimer 412 Sodium 141 Potassium 3.9 Chloride 104 Carbon Dioxide 29.5 Anion Gap 7.5 BUN 15 Creatinine 0.9 Est GFR (CKD-EPI 2020) 74.57 Glucose 93 Calcium 10.0 Total Bilirubin 0.4 AST 36 ALT 39 Alkaline Phosphatase 158 H Troponin I 96 H* 91 H* Total Protein 8.2 Albumin 4.1 Lipase 28 Last Vital Signs Temp 36.9 C 09/10/24 10:55 Pulse 63 09/10/24 14:49 Resp 18 09/10/24 14:49 BP 147/84 H 09/10/24 14:49 Pulse Ox 95 09/10/24 14:49 Time Spent Time spent with Patient: 40-54 minutes Time was spent: preparing to see the patient(eg.review tests), obtaining and/or reviewing separately otained hiistory, ordering medications,tests, procedures, referring, communicating with other health date night caregiver, indepentently interpreting results, counseling the patient and care coordination
[2024-09-10 15:10] LABS: Troponin I 84 ng/L (<or=51)
--- NOTE | 2024-09-10 15:21 | W.PC.ACHO ---
Registration Status: Primary Language: Preferred Language: ED Information & Data Chief Complaint Chest Pain 09/10/24 14:36 Triage Note ongoing for 2 months. 09/10/24 10:55 feeling unwell over night and randomly, feels like it is getting worse. pt reports recent med change of decreased anxiety medication. pt has also been seen at different er for this, they didnt find anything. pt reports chest pain is on and off and worse over night. Medical / Surgical History (Last Reviewed 02/27/21 @ 10:10 by Dorothea Perez MD) Depression Anxiety GERD (gastroesophageal reflux disease) Overweight Nasal polyps (Last Reviewed 12/09/20 @ 11:35 by Yevgeniy Childress MD) Colonoscopy - MAC (05/24/17) Most Recent Vital Signs Temperature 36.9 C 09/10/24 10:55 Pulse 63 09/10/24 15:14 Respiratory Rate 16 09/10/24 15:14 Respiratory Effort Normal 09/10/24 15:14 Respiratory Depth Normal 09/10/24 15:14 Blood Pressure 133/72 09/10/24 15:14 Blood Pressure Mean 92 09/10/24 15:14 Pulse Oximetry 95 09/10/24 15:14 Oxygen Delivery Method Room Air 09/10/24 15:14 Oxygen Flow Rate 0 09/10/24 15:14 Pain Level 8 09/10/24 10:55 Allergies No Known Allergies Allergy (Verified 09/10/24 11:00) IV IV Catheter Type [Left Saline Lock Antecubital] IV Catheter Gauge [Left 18 Antecubital] Diet Orders Category Date Time Status Heart Healthy Eating [DIET] Nutrition 09/10/24 Dinner Active Diagnostics 09/10/24 09/10/24 09/10/24 Range/Units 17:55 15:55 14:55 WBC (4.4-10.8) 10^3/uL RBC (3.93-5.22) 10^6/uL Hgb (11.2-15.7) g/dL Hct (36.0-46.0) % MCV (80-95) fL MCH (27.0-33.0) pg MCHC (32.0-36.0) % RDW (11.7-14.6) % Plt Count (130-400) 10^3/uL MPV (8.0-11.0) fL Immature Gran % % Neutrophils % % Lymphocytes % % Monocytes % % Eosinophils % % Basophils % % Nucleated RBC % (0.0-0.3) % Absolute Neutrophils (1.2-6.7) 10^3/uL Absolute Lymphocytes (1.2-3.4) 10^3/uL Absolute Monocytes (0.1-0.8) 10^3/uL Absolute Eosinophils (0.0-0.7) 10^3/uL Absolute Basophils (0.0-0.2) 10^3/uL D-Dimer (<500) ng/mlFEU Sodium (136-145) mmol/L Potassium (3.5-5.1) mmol/L Chloride (98-107) mmol/L Carbon Dioxide (21.0-32.0) mmol/L Anion Gap (3-11) mmol/L BUN (7-18) mg/dL Creatinine (0.55-1.02) mg/dL Est GFR (CKD-EPI 2020) (mL/min/1.73m2) Glucose (74-106) mg/dL Calcium (8.5-10.1) mg/dL Total Bilirubin (0.2-1.0) mg/dL AST (15-37) U/L ALT (14-59) U/L Alkaline Phosphatase (46-116) U/L Troponin I Pending Pending Pending (<or=51) ng/L Total Protein (6.4-8.2) g/dL Albumin (3.4-5.0) g/dL Lipase (<78) U/L 09/10/24 09/10/24 09/10/24 Range/Units 14:45 12:47 12:27 WBC (4.4-10.8) 10^3/uL RBC (3.93-5.22) 10^6/uL Hgb (11.2-15.7) g/dL Hct (36.0-46.0) % MCV (80-95) fL MCH (27.0-33.0) pg MCHC (32.0-36.0) % RDW (11.7-14.6) % Plt Count (130-400) 10^3/uL MPV (8.0-11.0) fL Immature Gran % % Neutrophils % % Lymphocytes % % Monocytes % % Eosinophils % % Basophils % % Nucleated RBC % (0.0-0.3) % Absolute Neutrophils (1.2-6.7) 10^3/uL Absolute Lymphocytes (1.2-3.4) 10^3/uL Absolute Monocytes (0.1-0.8) 10^3/uL Absolute Eosinophils (0.0-0.7) 10^3/uL Absolute Basophils (0.0-0.2) 10^3/uL D-Dimer 412 (<500) ng/mlFEU Sodium (136-145) mmol/L Potassium (3.5-5.1) mmol/L Chloride (98-107) mmol/L Carbon Dioxide (21.0-32.0) mmol/L Anion Gap (3-11) mmol/L BUN (7-18) mg/dL Creatinine (0.55-1.02) mg/dL Est GFR (CKD-EPI 2020) (mL/min/1.73m2) Glucose (74-106) mg/dL Calcium (8.5-10.1) mg/dL Total Bilirubin (0.2-1.0) mg/dL AST (15-37) U/L ALT (14-59) U/L Alkaline Phosphatase (46-116) U/L Troponin I 84 H* 91 H* (<or=51) ng/L Total Protein (6.4-8.2) g/dL Albumin (3.4-5.0) g/dL Lipase (<78) U/L 09/10/24 Range/Units 11:43 WBC 4.51 (4.4-10.8) 10^3/uL RBC 5.08 (3.93-5.22) 10^6/uL Hgb 14.7 (11.2-15.7) g/dL Hct 45.3 (36.0-46.0) % MCV 89 (80-95) fL MCH 28.9 (27.0-33.0) pg MCHC 32.5 (32.0-36.0) % RDW 13.8 (11.7-14.6) % Plt Count 257 (130-400) 10^3/uL MPV 10.0 (8.0-11.0) fL Immature Gran % 0.2 % Neutrophils % 52.8 % Lymphocytes % 38.1 % Monocytes % 4.0 % Eosinophils % 4.2 % Basophils % 0.7 % Nucleated RBC % 0.0 (0.0-0.3) % Absolute Neutrophils 2.38 (1.2-6.7) 10^3/uL Absolute Lymphocytes 1.72 (1.2-3.4) 10^3/uL Absolute Monocytes 0.18 (0.1-0.8) 10^3/uL Absolute Eosinophils 0.19 (0.0-0.7) 10^3/uL Absolute Basophils 0.03 (0.0-0.2) 10^3/uL D-Dimer (<500) ng/mlFEU Sodium 141 (136-145) mmol/L Potassium 3.9 (3.5-5.1) mmol/L Chloride 104 (98-107) mmol/L Carbon Dioxide 29.5 (21.0-32.0) mmol/L Anion Gap 7.5 (3-11) mmol/L BUN 15 (7-18) mg/dL Creatinine 0.9 (0.55-1.02) mg/dL Est GFR (CKD-EPI 2020) 74.57 (mL/min/1.73m2) Glucose 93 (74-106) mg/dL Calcium 10.0 (8.5-10.1) mg/dL Total Bilirubin 0.4 (0.2-1.0) mg/dL AST 36 (15-37) U/L ALT 39 (14-59) U/L Alkaline Phosphatase 158 H (46-116) U/L Troponin I 96 H* (<or=51) ng/L Total Protein 8.2 (6.4-8.2) g/dL Albumin 4.1 (3.4-5.0) g/dL Lipase 28 (<78) U/L Intake and Output - 24 Hour Total 09/10/24 10:52 thru 09/10/24 10:55 Weight 90.718 kg Falls Risk Assessment History of Falls No History 09/10/24 12:05 Contributing Factors No Factors 09/10/24 12:05 Ambulatory Aids Independent 09/10/24 12:05 Tubes/Lines None 09/10/24 12:05 Gait Evaluation No gait disturbance 09/10/24 12:05 Cognition No cognitive impairment 09/10/24 12:05 Fall Total Score 0 09/10/24 12:05 Level of Risk Standard/Low Risk 09/10/24 12:05 Problems (Last Reviewed 02/27/21 @ 10:10 by Dorothea Perez MD) SOB (shortness of breath) (Acute) Chest pain (Acute) v v v v v v v v v Sending and/or Receiving Nurses: Please use comment section below to note any information pertinent to the patient hand-off not included above. Information / Comments: Report received from: antonio in ED
[2024-09-10 16:32] LABS: Bilirubin Negative (Negative); Blood Negative (Negative); Clarity Clear (Clear); Glucose Negative (Negative); Ketones Negative (Negative); Leukocyte Esterase Negative (Negative); Nitrite Negative (Negative); Specific Gravity 1.015 (1.005-1.025); Urobilinogen 0.2 mg/dL (Up to 0.2)
[2024-09-10 20:44] LABS: Troponin I 81 ng/L (<or=51)
--- NOTE | 2024-09-11 01:04 | W.PM.DS.N ---
Date of service: 09/11/24 Time of Service: 01:04 DS: Diagnosis Discharge Diagnosis (1) Chest pain: Status: Acute Asessment and Plan: Patient a 1 month history of progressive symptoms with exertional shortness of breath and chest pain and sense of impending doom prior to her admission. She had no exertional chest pain during her hospital stay with slightly elevated troponins trending down. She did state that she has some resting chest fullness and fluttering which she interpreted as anxiety and the symptoms will sometimes similar to her exertional chest pain. She was not on a heparin infusion. She did receive low-dose aspirin and Plavix as well as initiated on statin. She was stable to time to transfer to [facility] cardiology for cardiac catheterization. She is a full code. (2) Anxiety: Asessment and Plan: Symptomatic treatment. Continue antidepressant. (3) SOB (shortness of breath): Status: Acute Asessment and Plan: Associated with presumed unstable angina pectoris. Discharge Plan Disposition Patient Disposition: Transfer-Acute Inpatient Care Specific Acute In Facility: [facility] Condition: Stable Discharge Details Reason For Visit: Chest Pain Admit Date/Time: 09/10/24 14:53 Admit Provider: Mike Gayle Attending Provider: Mike Gayle Primary Care Provider: Sydnee Meléndez [facility] Hospital Course Hospital Course: This is a 59-year-old lady related with 1 month history of progressive symptoms of dyspnea with exertion and occasional left substernal chest pain with a sense of doom when she had her symptoms. The symptoms were worse with exercise and exertion recently with a regular and routine pattern of exercise before these symptoms began over this last month. She would routinely walk with her but did not want to walk in the cold. The symptoms especially worsened when she was on the cruise and had increased walking while in [place]. She has a strong family history of CAD and does have a history of dyslipidemia which should be treated naturally. Given her presentation she was admitted and loaded with aspirin and Plavix as well as started on statin with heparin infusion held per [facility] cardiology wanted to have her transferred when bed was available. Troponins were elevated but trending downward and under 100. She was not having chest pain with rest but did have some anxiety and chest fullness with fluttering which was somewhat similar to her her exertional symptoms. She was stable at the time of transfer with physical exam unchanged from admission exam. See H&P and ED reports. Bed did become available and patient will be transferred via ambulance with ACLS protocol to [facility] cardiology for cardiac catheterization in the morning. Patient is a full code. Home Meds and New Rx's Prescriptions: No Action escitalopram oxalate 5 mg Tablet 5 mg PO DAILY Discharge Instructions Activity:: Activity as Tolerated Equipment/Supplies:: No Equipment Needed Diet:: N P O Discharge Orders Discharge Orders: Discharge Order (Routine); Ordered 09/11/24 Ordered By: Yevgeniy Nava DS: Summary Time Spent with Patient providing and/or coordinating discharge services: Greater than 30 minutes Status at Discharge Functional status at discharge: independent ambulation Overall status at discharge: patient is progressing back to baseline Mental Status: mental status grossly normal Speech and Movement: speech and movement normal Mood: anxious mood Affect: normal affect Quality:SDOH Health Related Social Needs: Health related social needs feeling lonely/isolated (Z60.8) Health related social needs details daughter does not want her in her life anymore- stated by pt Health related social needs details: daughter does not want her in her life anymore- stated by pt Exam Narrative Exam Narrative: See admission physical exam. No change at the time of transfer. Psych Mental Status: mental status grossly normal Speech and Movement: speech and movement normal Mood: anxious mood Affect: normal affect DS: Data Vitals/I&O Vitals and I&O: Vital Signs Temperature 36.1 C L 09/10/24 22:55 Temperature Source Tympanic 09/10/24 22:55 Pulse 60 09/10/24 22:55 Pulse Rhythm Regular 09/10/24 15:29 Respiratory Rate 22 09/10/24 22:55 Respiratory Effort Normal 09/10/24 15:29 Respiratory Depth Normal 09/10/24 15:29 Respiratory Pattern Normal 09/10/24 15:29 Blood Pressure 121/67 09/10/24 22:55 Blood Pressure Mean 92 09/10/24 15:14 Pulse Oximetry 98 09/10/24 22:55 Oxygen Delivery Method Room Air 09/10/24 22:55 Oxygen Flow Rate 0 09/10/24 22:55 Pain Level 6 09/10/24 22:55 Intake & Output 09/10/24 09/10/24 09/11/24 11:59 23:59 11:59 Weight 90.718 kg 91.138 kg Other: Urine Color Yellow Urine Appearance Clear Comment pt voided in toilet, unable to measure Data Completed and Pending Labs on day of discharge: Labs from last 24 hours 09/10/24 09/10/24 09/10/24 20:05 17:55 15:55 WBC RBC Hgb Hct MCV MCH MCHC RDW Plt Count MPV Immature Gran % Neutrophils % Lymphocytes % Monocytes % Eosinophils % Basophils % Nucleated RBC % Absolute Neutrophils Absolute Lymphocytes Absolute Monocytes Absolute Eosinophils Absolute Basophils D-Dimer Sodium Potassium Chloride Carbon Dioxide Anion Gap BUN Creatinine Est GFR (CKD-EPI 2020) Glucose Calcium Total Bilirubin AST ALT Alkaline Phosphatase Troponin I 81 H* Cancelled Cancelled Total Protein Albumin Lipase Urine Color Urine Clarity Urine pH Ur Specific [place] Urine Protein Urine Ketones Urine Blood Urine Nitrite Urine Bilirubin Urine Urobilinogen Ur Leukocyte Esterase Urine Glucose 09/10/24 09/10/24 09/10/24 15:50 14:55 14:45 WBC RBC Hgb Hct MCV MCH MCHC RDW Plt Count MPV Immature Gran % Neutrophils % Lymphocytes % Monocytes % Eosinophils % Basophils % Nucleated RBC % Absolute Neutrophils Absolute Lymphocytes Absolute Monocytes Absolute Eosinophils Absolute Basophils D-Dimer Sodium Potassium Chloride Carbon Dioxide Anion Gap BUN Creatinine Est GFR (CKD-EPI 2020) Glucose Calcium Total Bilirubin AST ALT Alkaline Phosphatase Troponin I Cancelled 84 H* Total Protein Albumin Lipase Urine Color Yellow Urine Clarity Clear Urine pH 6.0 Ur Specific [place] 1.015 Urine Protein Negative Urine Ketones Negative Urine Blood Negative Urine Nitrite Negative Urine Bilirubin Negative Urine Urobilinogen 0.2 Ur Leukocyte Esterase Negative Urine Glucose Negative 09/10/24 09/10/24 09/10/24 12:47 12:27 11:43 WBC 4.51 RBC 5.08 Hgb 14.7 Hct 45.3 MCV 89 MCH 28.9 MCHC 32.5 RDW 13.8 Plt Count 257 MPV 10.0 Immature Gran % 0.2 Neutrophils % 52.8 Lymphocytes % 38.1 Monocytes % 4.0 Eosinophils % 4.2 Basophils % 0.7 Nucleated RBC % 0.0 Absolute Neutrophils 2.38 Absolute Lymphocytes 1.72 Absolute Monocytes 0.18 Absolute Eosinophils 0.19 Absolute Basophils 0.03 D-Dimer 412 Sodium 141 Potassium 3.9 Chloride 104 Carbon Dioxide 29.5 Anion Gap 7.5 BUN 15 Creatinine 0.9 Est GFR (CKD-EPI 2020) 74.57 Glucose 93 Calcium 10.0 Total Bilirubin 0.4 AST 36 ALT 39 Alkaline Phosphatase 158 H Troponin I 91 H* 96 H* Total Protein 8.2 Albumin 4.1 Lipase 28 Urine Color Urine Clarity Urine pH Ur Specific [place] Urine Protein Urine Ketones Urine Blood Urine Nitrite Urine Bilirubin Urine Urobilinogen Ur Leukocyte Esterase Urine Glucose PFSH All Active Problems Elevated troponin (Acute) Chest pain (Acute) SOB (shortness of breath) (Acute) Chest pain (Acute) Palpitations (Acute) Palpitations (Acute) Medical History Depression Anxiety GERD (gastroesophageal reflux disease) Overweight Nasal polyps Surgical History Colonoscopy - [facility] (05/24/17) Social History Smoking/Tobacco Use Status: Former Tobacco Use Smoking risk assessment performed?: Yes Alcohol Intake: former Drug use: Never Substance use type: does not use Household members: spouse Housing: house current occupation: [employer] works in [employer] Do you feel safe at home: Yes Do you feel safe in your relationship?: Yes Time Spent with Patient Time Spent with Patient: <45 minutes Time was spent: preparing to see the patient(eg.review tests), obtaining and/or reviewing separately otained hiistory, indepentently interpreting results, counseling the patient and care coordination
[2024-09-11 07:51] VITALS: BP 124/64; PULSE 62; RESP 17; TEMP 36.4; O2SAT 99
[2024-09-11] MEDS: Escitalopram 10 MG TAB 5 MG PO (09:24)
--- NOTE | 2024-09-11 11:36 | CMPROGNOTE_ITS ---
Date of service: 09/11/24 Time of Service: 11:36 Care Management Progress Note Progress Note Text Progress Note Text: Julianna was admitted on 09/10/24 with chest pain and shortness of breath. Her troponins were stable in the 80s and her EKG showed sinus rhythm. Because symptoms have slowly gotten worse over the past month and she has a strong family history, a referral was made to [facility] Cardiology. [facility] She was admitted overnight and a bed became available this morning. She was transferred to [facility] via EMS at approximately 1130 am. Social Determinants of Health Screening Social Determinants of health last assessed in clinic: 09/11/24 Will the Patient Participate in the Screening?: Yes Do you worry about having a steady place to live?: no Problems where you live: no known problems In the past 12 months, have you had to go without electric, gas, oil or water in your home?: no 1. Within the past 12 months, we worried whether our food would run out before we got money to buy more.: Never true 2. Within the past 12 months, the food we bought just didn't last and we didn't have money to get more.: Never true Has lack of transportation kept you from medical appointments or from doing things needed for daily living?: no Has anyone in your life made you feel unsafe or unsupported?: yes How often does anyone, including family and friends, physically hurt you?: Never How often does anyone, including family and friends, insult or talk down to you?: Never How often does anyone, including family and friends, threaten you with harm?: Never How often does anyone, including family and friends, scream or curse at you?: Never HRSN Safety total score: 4 How hard is it for you to pay for the very basics like food, housing, medical care, and heating? Would you say it is:: Not hard at all Do you want help finding or keeping work or a job?: I do not need or want help If for any reason you need help with day-to-day activities such as bathing, preparing meals, shopping, managing finances, etc., do you get the help you need?: I don?t need any help How often do you feel lonely or isolated from those around you?: Rarely Do you speak a language other than Chinese at home?: No Does the patient want assistance with any of the above?: No Health Related Social Needs Health related social needs: feeling lonely/isolated (Z60.8) Health related social needs details: daughter does not want her in her life anymore- stated by pt
== END 2024-09-11 11:30 | disposition short-term general hospital (02) | DRG 313 ==
LOC: ER 14:36 → MS 15:27
PROVIDERS: Admitting Provider Hospitalist; Emergency Provider Physician Assistant; PCP Family Medicine; Responsible Provider Hospitalist; Visit Provider Hospitalist
DX: R07.89 Other chest pain; R06.02 Shortness of breath; F41.9 Anxiety disorder, unspecified; R74.8 Abnormal levels of other serum enzymes; E78.5 Hyperlipidemia, unspecified; R10.13 Epigastric pain; R79.1 Abnormal coagulation profile; R00.2 Palpitations; F32.A Depression, unspecified; K21.9 Gastro-esophageal reflux disease without esophagitis; Z87.891 Personal history of nicotine dependence; Z82.49 Family history of ischemic heart disease and other diseases of the circulatory system
CPT/HCPCS: 00123; 36415; 80053; 83690; 93005; 99285; 71046; 81003; 84484; 85025; 85379; 93010; 99222; 99239; J3490

== ENCOUNTER 2024-12-07 02:29 | Outpatient (CLI) | payer OTHER, SELFPAY ==
--- NOTE | 2024-12-07 | DI.MAMMO_ITS ---
Exam(s) MAMMO SCREENING EXAM: MAMMO SCREENING CLINICAL HISTORY: Screening, Z12.31, [id number] TECHNIQUE: Bilateral full field digital CC and MLO mammographic images were obtained with 3D tomosynthesis and utilizing computer aided detection (CAD). COMPARISON: Comparison is made with prior examinations. FINDINGS: Masses/Architectural Distortion: There are new nodule seen in the left breast. There is a 7 mm nodule seen 7 cm from the nipple in the outer left breast on the craniocaudad view. There are 3 nodular densities seen on the MLO view. These all should be further evaluated with spot compression views. Microcalcifications: No suspicious pleomorphic-type are seen. Skin Thickening/Nipple Retraction: None. IMPRESSION: 1. New left breast nodules as described above. 2. Spot compression views are requested for further evaluation. Ultrasound should also be obtained at that time. BI-RADS Category 0 - Incomplete: Need additional imaging evaluation Breast Density - Category B - There are scattered areas of fibroglandular density. Breast density Category C or D implies that the patient has dense breast tissue. Dense breast tissue can make it harder to find cancer on a mammogram. Dense breast tissue is also associated with an increased risk of breast cancer. This information about the result of the mammogram report was provided to the patient to raise their awareness. Use this report when you speak with the patient about their risks for breast cancer, which includes their family history. At that time, you may recommend additional screening tests (Ultrasound or MRI) as these tests may add significant information. A negative radiographic report should not delay biopsy if a dominant or clinically suspicious mass is present. Up to ten percent of cancers are not identified on mammography. A negative report may reinforce clinical impression. Adenosis and dense breasts may obscure an underlying neoplasm. False positive reports average 6 to 10%. Patient will receive a letter notifying them of these results.
== END 2024-12-07 02:49 ==
LOC: DI 02:30
PROVIDERS: PCP Family Medicine; Visit Provider Internal Medicine
DX: Z12.31 Encounter for screening mammogram for malignant neoplasm of breast (principal); R92.323 Mammographic fibroglandular density, bilateral breasts
CPT/HCPCS: 77063; 77067

== ENCOUNTER 2024-12-10 00:43 | Outpatient (CLI) | payer OTHER, SELFPAY ==
--- NOTE | 2024-12-10 | DI.US_ITS ---
Exam(s) MG MAMMO SCREEN CALL BACK UNI US BREAST LT COMPLETE EXAM: MG MAMMO SCREEN CALL BACK UNI and U/S breast LT complete CLINICAL HISTORY: F/U MAMMO, NEW LT BREAST NODULES,R92.8,[id number]. TECHNIQUE: Craniocaudal and mediolateral oblique Full Field Digital Mammography views of the left breast with Computer Aided Diagnosis followed by Tomosynthesis and complete left breast ultrasound. All 4 quadrants of the left breast were evaluated sonographically in addition to the retroareolar region and left axilla. COMPARISON: Comparison is made with prior examinations. FINDINGS: Mammography/Tomosynthesis: Masses/Architectural Distortion: On the MLO view, the nodules in the axillary tail region and the inferior left breast persist. The more anterior nodule does not persist and likely represents fibroglandular tissue. On the craniocaudad view, the lobulated nodule in the central left breast persists. There is no architectural distortion. The nodule show no evidence of spiculation. Microcalcifictions: No suspicious pleomorphic-type are seen. Skin Thickening/Nipple Retraction: None. Complete left breast US: Echotexture: Normal appearance of the glandular tissue. Shadowing: No suspicious foci. Cyst: None. Solid lesions: None seen. Ductal dilation: None. IMPRESSION: 1. Stable well-circumscribed nodules in the left breast. No cystic or solid nodules are seen sonographically. These may reflect intraparenchymal lymph nodes. 2. A six-month follow-up left mammogram is requested for re-evaluation. 3. The findings were discussed with the patient on the date of the examination. BI-RADS Category 3 - 6 month - Probably Benign Finding: Recommend follow-up imaging in 6 months Breast Density - Category B - There are scattered areas of fibroglandular density. Breast density Category C or D implies that the patient has dense breast tissue. Dense breast tissue can make it harder to find cancer on a mammogram. Dense breast tissue is also associated with an increased risk of breast cancer. This information about the result of the mammogram report was provided to the patient to raise their awareness. Use this report when you speak with the patient about their risks for breast cancer, which includes their family history. At that time, you may recommend additional screening tests (Ultrasound or MRI) as these tests may add significant information. A negative radiographic report should not delay biopsy if a dominant or clinically suspicious mass is present. Up to ten percent of cancers are not identified on mammography. A negative report may reinforce clinical impression. Adenosis and dense breasts may obscure an underlying neoplasm. False positive reports average 6 to 10%. Patient will receive a letter notifying them of these results.
== END 2024-12-10 01:03 ==
LOC: DI 00:44
PROVIDERS: PCP Family Medicine; Visit Provider Internal Medicine
DX: Z12.31 Encounter for screening mammogram for malignant neoplasm of breast (principal); R92.8 Other abnormal and inconclusive findings on diagnostic imaging of breast; R92.323 Mammographic fibroglandular density, bilateral breasts
CPT/HCPCS: 76642; 77063; 77067

== ENCOUNTER → 2025-05-17 00:28 | Outpatient (CLI) | payer OTHER, SELFPAY ==
--- NOTE | 2025-05-17 | DI.MAMMO_ITS ---
Exam(s) US BREAST LT COMPLETE MAMMO DIAGNOSTIC UNI EXAM: MAMMO DIAGNOSTIC UNI and U/S breast LT complete CLINICAL HISTORY: 3-6 MONTH FOLLOW UP, NEW BREAST PAIN,R92.2,[id number]. TECHNIQUE: Craniocaudal and mediolateral oblique Full Field Digital Mammography views of the left breast with Computer Aided Diagnosis followed by Tomosynthesis and complete left breast ultrasound. All 4 quadrants of the left breast, the left retroareolar region and left axilla were evaluated sonographically. COMPARISON: Comparison is made with prior examinations. FINDINGS: Mammography/Tomosynthesis: Masses/Architectural Distortion: There is again seen a lobulated nodule in the upper outer quadrant of the left breast. It is unchanged in size measuring 7 mm. There are no areas of architectural distortion. Microcalcifictions: No suspicious pleomorphic-type are seen. Skin Thickening/Nipple Retraction: None. Complete left breast US: Echotexture: Normal appearance of the glandular tissue. Shadowing: No suspicious foci. Cyst: None. Solid lesions: None seen. Ductal dilation: None. IMPRESSION: 1. Persistent 7 mm nodule in the upper outer quadrant of the left breast. This was not present on the examination from 2022. 2. Biopsy is recommended for further characterization. 3. The findings were discussed with the patient on the date of the examination. BI-RADS Category 4 - Suspicious Abnormality: Biopsy should be considered Breast Density - Category B - There are scattered areas of fibroglandular density. Breast density Category C or D implies that the patient has dense breast tissue. Dense breast tissue can make it harder to find cancer on a mammogram. Dense breast tissue is also associated with an increased risk of breast cancer. This information about the result of the mammogram report was provided to the patient to raise their awareness. Use this report when you speak with the patient about their risks for breast cancer, which includes their family history. At that time, you may recommend additional screening tests (Ultrasound or MRI) as these tests may add significant information. A negative radiographic report should not delay biopsy if a dominant or clinically suspicious mass is present. Up to ten percent of cancers are not identified on mammography. A negative report may reinforce clinical impression. Adenosis and dense breasts may obscure an underlying neoplasm. False positive reports average 6 to 10%. Patient will receive a letter notifying them of these results.
== END ==
PROVIDERS: PCP Family Medicine; Visit Provider Internal Medicine
DX: N63.21 Unspecified lump in the left breast, upper outer quadrant; N64.4 Mastodynia
CPT/HCPCS: 76642; 77061; 77065; G0279